=== PATIENT | male | born 1975 | race Caucasian/White ===

== ENCOUNTER 2024-05-04 08:37 | Outpatient (OUT) | payer BC, SELFPAY ==
[2024-05-04 09:34] LABS: Basophils Absolute Auto 0.1 10^3/uL (0.0-0.1); Basophils Percent Auto 0.6 % (0.2-2.0); Eosinophils Absolute Auto 0.2 10^3/uL (0.0-0.7); Eosinophils Percent Auto 1.8 % (0.9-7.0); Hematocrit 45.5 % (42.0-54.0); Hemoglobin 15.5 g/dL (14.0-18.0); Immature Granulocytes Abs Auto 0.05 10^3/uL (0.00-0.03); Immature Granulocytes Pct Auto 0.6 % (0.0-0.5); Lymphocytes Absolute Auto 2.4 10^3/uL (1.2-3.8); Lymphocytes Percent Auto 26.8 % (20.5-60.0); Mean Corpuscular HGB Conc 34.1 g/dL (29.9-35.2); Mean Corpuscular Hemoglobin 30.1 pg (25.9-34.0); Mean Corpuscular Volume 88.3 fL (80.0-94.0); Mean Platelet Volume 10.1 fL (9.5-13.5); Monocytes Absolute Auto 0.9 10^3/uL (0.3-0.8); Monocytes Percent Auto 10.4 % (1.7-12.0); Neutrophils Absolute Auto 5.4 10^3/uL (1.4-6.5); Neutrophils Percent Auto 59.8 % (43.0-75.0); Platelet Count 212 10^3/uL (150-450); Red Blood Count 5.15 10^6/uL (4.70-6.10); Red Cell Distribution Width 12.4 % (11.0-15.0)
[2024-05-04 09:41] LABS: Estimated Average Glucose 105 mg/dL; Glycohemoglobin A1C 5.3 % (4.5-6.2)
[2024-05-04 09:53] LABS: Alanine Aminotransferase 41 U/L (16-63); Albumin Globulin Ratio 1.3; Albumin Level 3.9 g/dL (3.4-5.0); Alkaline Phosphatase 62 U/L (46-116); Anion Gap 14.5; Aspartate Amino Transferase 15 U/L (15-37); BUN Creatinine Ratio 14.6; Bilirubin Total 0.4 mg/dL (0.2-1.0); Carbon Dioxide 27.9 mmol/L (21.0-32.0); Chloride 103 mmol/L (98-107); Chol HDL Ratio 6.3; Cholesterol 238 mg/dL (<=200); Estimated GFR (African America >60 (>=60); Estimated GFR (Non-African Ame >60 (>=60); Free T3 2.61 pg/mL (2.18-3.98); Globulin 3.1 g/dL; Glucose 105 mg/dL (74-106); HDL Cholesterol 38 mg/dL (40-60); Potassium 4.4 mmol/L (3.5-5.1); Sodium 141 mmol/L (136-145); Thyroid Stimulating Hormone 2.481 uIU/mL (0.358-3.740); Triglycerides 231 mg/dL (<=150); VLDL CHOLESTEROL 46.2 mg/dL
[2024-05-04 10:02] LABS: Prostate Specific Antigen Scrn 0.65 ng/mL (<=4.00)
[2024-05-06 12:08] LABS: Insulin 37.6 uIU/mL (2.6-24.9)
== END 2024-05-04 08:38 | disposition home or self-care (01) ==
LOC: LAB 08:45
PROVIDERS: PCP Family Medicine; Visit Provider Family Medicine
DX: Z00.00 Encounter for general adult medical examination without abnormal findings (principal)
CPT/HCPCS: 36415; 80053; 80061; 83036; 83525; 84436; 84443; 84481; 85025; G0103

== ENCOUNTER 2024-06-21 14:46 | Outpatient (OUT) | payer BC, SELFPAY ==
--- OUTSIDE RECORDS SUMMARY | 2024-06-21 14:49 | XMS_ITS | CCD ---
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 Name Role Phone Lola Umana Primary Care Provider Dylan Nieto Attending Provider Marlo Chun Unavailable Jeana Lauren Unavailable Dylan Nieto Unavailable ERWIN, DR LOLA Levine Admitting Unavailable UMANA, DR LOLA Levine Attending Unavailable UMANA, DR LOLA Levine Consulting Unavailable UMANA, DR LOLA Levine Primary Care Unavailable WILBEREBER, DR ISABELA Alford Consulting Unavailable MISC, DR GUPTA Attending Unavailable MISC, DR GUPTA Admitting Unavailable CASPER, DR PHU Patrick Consulting Unavailable UMANA, DR LOLA Levine Primary Care Unavailable MISC, DR GUPTA Consulting Unavailable MISC, DR GUPTA Attending Unavailable MISC, DR GUPTA Consulting Unavailable UMANA, DR LOLA Levine Primary Care Unavailable MISC, DR GUPTA Admitting Unavailable KLYMALLISON Consulting Unavailable UMANA, DR LOLA Levine Admitting Unavailable UMANA, DR LOLA Levine Attending Unavailable UMANA, DR LOLA Levine Primary Care Unavailable UMANA, DR LOLA Levine Admitting Unavailable UMANA, DR LOLA Levine Attending Unavailable UMANA, DR LOLA Levine Primary Care Unavailable UMANA, DR LOLA Levine Primary Care Unavailable UMANA, DR LOLA Levine Admitting Unavailable UMANA, DR LOLA Levine Attending Unavailable UMANA, DR LOLA Levine Consulting Unavailable Sofya Espinoza Unavailable Ralph Hernandez Unavailable MD Lola Umana Primary Care Provider MD Ralph Hernadnez Attending Provider Lola Umana Primary Care Unavailable Ralph Hernandez Admitting Unavailable Ralph Hernandez Attending Unavailable Ralph Hernandez Attending Unavailable Ralph Hernandez Admitting Unavailable Lola Umana Primary Care Unavailable Ralph Hernandez Attending Unavailable Ralph Hernandez Admitting Unavailable Lola Umana Primary Care Unavailable Sang Sullivan Unavailable Alexis ALCANTARA Attending Unavailable Judd Tanner Referring Unavailable Unavailable Unavailable Unavailable Allergies Allergy Classification Reported Allergen(s) Allergy Type Date of Onset Reaction(s) Facility (20 sources) Michael Carroll Propensity to adverse reactions rash [place] Other (1 source) No Known Medication Allergies; Translations: [No Known Medication Allergies] Propensity to adverse reactions (disorder) [facility] Repository Medications Current Medications Medication Drug Class(es) Dates Sig (Normalized) Sig (Original) acetaminophen 500 mg oral tablet (3 sources) Start: 06-23-2022 take 2 tablets by mouth every six hours Acetaminophen (Tylenol Extra Strength) 500 mg Tablet Active 1000 MG PO Q6H June 23, 2022 12:00am celecoxib 200 mg oral capsule (15 sources) Nonsteroidal Anti-inflammatory Drug Start: 05-02-2022 take 200 mg by mouth once daily Celecoxib Active 200 MG PO Daily June 23, 2022 12:00am Centrum Men (20 sources) Centrum Men Acti ve cephalexin 500 mg oral capsule (1 source) Cephalosporin Antibacterial Start: 07-06-2022 take 500 mg by mouth three times daily Cephalexin Active 500 MG PO Three times daily 15 July 06, 2022 12:00am cyclobenzaprine hydrochloride 10 mg oral tablet (6 sources) Muscle Relaxant Start: 07-06-2022 take 10 mg by mouth three times daily Cyclobenzaprine Active 10 MG PO Three times daily 40 July 06, 2022 12:00am Start: 09-16-2020 End: 06-23-2022 take 10 mg by mouth three times daily Cyclobenzaprine Discontinued 10 MG PO Three times daily September 16, 2020 1:00am June 23, 2022 4:10pm diazePAM 10 mg oral tablet (4 sources) Benzodiazepine Start: 10-06-2021 take 1 tablet by mouth once as needed Valium 10 MG 1 tablet as needed Orally once prior to mri for 1 days Sep, Active Start: 09-29-2020 End: 06-23-2022 take 5 mg by mouth four times daily Diazepam Discontinued 5 MG PO Four times daily 10 07September 29, 2020 1:00am June 23, 2022 4:10pm gabapentin 300 mg oral capsule (15 sources) Anti-epileptic Agent Start: 05-02-2022 take 300 mg by mouth three times daily Gabapentin Active 300 MG PO Three times daily June 23, 2022 12:00am glucosamine 500 mg oral tablet (1 source) take 1 capsule by mouth three times daily Glucosamine 500 MG 1 capsule with a meal Orally Three times a day Active Multivitamin preparation (3 sources) Start: 06-23-2022 take 1 tablet by mouth once daily Multivitamin Active 1 TAB PO Daily June 23, 2022 12:00am oxyCODONE hydrochloride 5 mg oral tablet (1 source) Opioid Agonist Start: 07-06-2022 take 5-10 mg by mouth every six hours Oxycodone Active 5 - 10 MG PO Q6H 40 July 06, 2022 Start: 07-06-2022 take 5-10 mg by mout h every six hours Oxycodone Active 5 - 10 MG PO Q6H 40 July 06, 2022 predniSONE 10 mg oral tablet (7 sources) Start: 06-01-2023 prednisone 10 mg 4 tablets x2 days, then 3 x2 days, 2 x2 days, 1 x2 days Orally as directed for 8 May, Active Start: 12-30-2022 predniSONE 10 MG 1 tablet T.I.D x 3days, 1 tablet B.I.D x 3 days, 1 tablet qd X3 days Orally as directed for 9 days Dec, Not-Taking Start: 07-06-2022 Prednisone Act prashant 1 dose pk PO per package directions July 06, 2022 12:00am take 4 tabs for 3 days then take 3 tabs for 3 days then take 2 tabs for 3 days then take 1 tab for 3 days Triamcinolone (20 sources) Corticosteroid Start: 04-08-2019 HAKAN - 10 m g Mar, 40 mg Completed/Discontinued Medications Medication Drug Class(es) Dates Sig (Normalized) Sig (Original) acetaminophen 325 mg / HYDROcodone bitartrate 5 mg oral tablet (3 sources) Opioid Agonist Start: 09-29-2020 End: 06-23-2022 take 1 tablet by mouth every six hours Hydrocodone-Acetamin ophen Discontinued 1 - 2 TAB PO Q6H 70 14 September 29, 2020 June 23, 2022 4:10pm ascorbic acid 100 mg oral tablet (5 sources) Vitamin C Start: 09-16-2020 End: 06-23-2022 take 1 tablet by mouth once daily Ascorbic Acid (Vitamin C) (Vitamin C) 100 mg Tablet Discontinued 100 MG PO Daily September 16, 2020 1:00am June 23, 2022 4:09pm cholecalciferol 0.025 mg oral capsule (5 sources) Vitamin D Start: 09-16-2020 End: 06-23-2022 take 1 capsule by mouth once daily Cholecalciferol (Vitamin D3) (Vitamin D3) 25 mcg (1,000 unit) Capsule Discontinued 25 MCG PO Daily September 16, 2020 1:00am June 23, 2022 4:09pm Problems Active Problems Problem Classification Problem Date Documented Date Episodic/Chronic Allergic reactions (1 source) Allergic contact dermatitis due to plants, except food Episodic Other nervous system disorders (20 sources) Chronic pain; Translations: [Other chronic pain] Chronic Other nervous system disorders (7 sources) Other chronic pain Onset: 12-23-2021 Resolved: 03-03-2022 Chronic Other upper respiratory disease (20 sources) Seasonal allergic rhinitis; Translations: [Other seasonal allergic rhinitis] Chronic Residual codes; unclassified (4 sources) Obstructive sleep apnea (adult) (pediatric); Translations: [OBSTRUCTIVE SLEEP APNEA] Onset: 04-25-2022 Chronic Spondylosis; intervertebral disc disorders; other back problems (20 sources) Solitary sacroiliitis; Translations: [Sacroiliitis, not elsewhere classified] Onset: 10-04-2021 Resolved: 03-03-2022 Chronic Spondylosis; intervertebral disc disorders; other back problems (20 sources) Cervical disc disorder with radiculopathy; Translations: [Cervical disc disorder with radiculopathy, unspecified cervical region] Onset: 08-23-2021 Resolved: 03-03-2022 Episodic Unclassified (1 source) Encounter for preprocedural laboratory examination; Translations: [Encounter for preprocedural laboratory examination] Onset: 07-04-2022 Past or Other Problems Problem Classification Problem Date Documented Da te Episodic/Chronic Immunizations and screening for infectious disease (1 source) Contact with and (suspected) exposure to other viral communicable diseases Onset: 07-27-2021 Resolved: 07-27-2021 Episodic Viral infection (1 source) COVID-19 Onset: 07-27-2021 Resolved: 07-27-2021 Results Test Name Value Interpretation Reference Range Facility Ambulatory Visit Summaryon 0 05-29-2024 Ambulatory Visit Summary Ambulatory Visit Summary TYLOR WALL :1975 Visit Date:05/29/2024 Ambulatory Visit Instructions Your Diagnosis Screening for malignant neoplasm of colon Your Care Team Attending Physician - MARICRUZ ANDERSEN, Alexis Alford Primary Care Physician - Flores ANDERSEN, Judd Referring Physician - Flores ANDERSEN, Judd Procedures Performed Cervical discectomy, Lumbar discectomy. Discharge Vitals Heart Rate (Peripheral) 72 Respiratory Rate 16 Blood Pressure 118/74 Height 172.72 cm Height 68 in Weight 106 kg Weight 233.2 lb BMI 35.53 Allergies No Known Allergies No Known Medication Allergies Problems Ongoing - Any problem that you are currently receiving treatment for. BMI 35.0-35.9,adult Obesity due to excess calories Screening for malignant neoplasm of colon Sleep apnea Patient Survey You may receive a survey via text or e-mail asking about your office visit. Please share your experience with us by completing your survey. We appreciate your feedback and thank you for choosing us for your care. [facility] Dannie 07-06-2022 L - -------- Specimen: [id number] Received: 07/06/22 Status: NASREEN Brenda Num: [id number] Spec Type: Surgical Subm Dr: Ralph Hernandez MD Tissues: A Disc - Intervertebral/Lumbar /Cervical (LUMBAR DISC) Procedures: HE Stain, Gross/Micro L3 -------- Age/ Patient Sex Location Account Attending Physician -------- Tylor Wall 47/M DC [id number] Ralph Hernandez MD -------- SPEC NUM: [id number] RECD: 07/06/22 STATUS: NASREEN OLIVER NUM: [id number] ERIC: 07/06/22 [facility] DR: Ralph Hernandez MD ENTERED: 07/06/[address] [facility] [address]: ANTHONY TYPE: Surgical DEPT: S ORDERED: HE Stain, Gross/Micro L3 ORDERED: HE Stain, Gross/Micro L3 Pathological Diagnosis Lumbar disc, discectomy: - Benign degenerated cartilage tissue. Clinical Information Left L5-S1 disc herniation Gross Description Received in formalin labeled with the patient's name, number and lumbar disc is a 4.5 x 2.3 x 1.2 cm aggregate of coon-pink fibrocartilaginous tissue. Inspector Eyeglass sections are submitted in one cassette labeled A1. Microscopic Description One glass slide with H E stained material has been examined. The microscopic findings support the above pathologic diagnosis. CPT Codes 45671 -------- -------- Specimen: [id number] Received: 07/06/22 Status: NASREEN Brenda Num: [id number] Spec Type: Surgical Subm Dr: Ralph Hernandez MD Tissues: A Disc - Intervertebral/Lumbar /Cervical (LUMBAR DISC) Procedures: HE Stain, Gross/Micro L3 -------- Patient: Tylor Wall [id number] (Continued) -------- Signed (signature on file) Kylie Echeverria MD 07/07/[address] [facility] XR lumbar spine 1Von 022 XR lumbar spine 1V [address] [address] XRay Report Signed Patient: Tylor Wall MR#: [id number] : 1975 Acct:[id number] Age/Sex: 47 / M ADM Date: 07/06/22 Loc: DC Room: Type: [facility] Attending Dr: Ralph Hernandez MD Copies to: Ralph Hernandez MD Ordering Provider: Ralph Hernandez MD Date of Service: 07/06/22 XR/XR lumbar spine 1V: . Intraoperative study. Reason for exam: Lumbar discectomy. FINDINGS: One image was obtained intraoperatively. 30 seconds of fluoroscopic time is utilized. XR/XR lumbar spine 1V IMPRESSION: Intraoperative study. Impression dictated by: Rodrigo Avalos Jr., D.OArtie07/06/2022 12:45 PM Dictation Location: [place] [address] Transcribed By: [facility] 07/06/22 1245 Dictated By: Rodrigo Avalos Jr, DO 07/06/22 1244 Signed By: 07/06/22 1245 Normal [facility] COVID-19 [facility] SARS-CoV-2 (COVID-19) RNA AMPARO+probe Ql (Unsp spec) Negative Normal Negative [facility] Comment on above: Order Comment: Healt hcare Worker?: N Result Comment: Testing for SARS-CoV-2 by RT-PCR This test was developed and its performance characteristics determined by [employer]) and validated at the [facility]. This test has not been FDA cleared or approved. This test has been authorized by FDA under an Emergency Use Authorization (EUA). This test has been validated in accordance with the FDA's Guidance Document (Policy for Diagnostics Testing in Laboratories Certified to Perform High Complexity Testing under CLIA prior to Emergency Use Authorization for Coronavirus Disease-2019 during the Public Health Emergency) issued on December 12, 2019. This test is only authorized for the duration of time the declaration that circumstances exist justifying the authorization of the emergency use of in vitro diagnostic tests for detection of SARS-CoV-2 virus and/or diagnosis of COVID-19 infection under section 564(b)(1) of the Act, 21 U.S.C. 360bbb-3(b)(1), unless the authorization is terminated or revoked sooner. PERFORMED BY: [facility] [address] [place] [address] PATHOLOGIST SAFETY REPRESENTATIVE HOLLY RAINES M.D. Performed By: #### C OVID 19 [facility] #### [facility] [address] COVID-19 Positive/NegativeOr dered By: Ralph Hernandez on 07-04-2022 SARS-CoV-2 (COVID-19) N gene AMPARO+probe Ql (Resp) Negative Negative [facility] Comment on above: Testing for SARS-CoV -2 by RT-PCRThis test was developed and its performance characteristics determined by [employer] ([employer]) and validated at the [facility]. This test has not been FDA cleared or approved. This test has been authorized by FDA under an Emergency Use Authorization (EUA). This test has been validated in accordance with the FDA's Guidance Document (Policy for Diagnostics Testing in Laboratories Certified to Perform High Complexity Testing under CLIA prior to Emergency Use Authorization for Coronavirus Disease-2019 during the Public Health Emergency) issued on December 12, 2019. This test is only authorized for the duration of time the declaration that circumstances exist justifying the authorization of the emergency use of in vitro diagnostic tests for detection of SARS-CoV-2 virus and/or diagnosis of COVID-19 infection under section 564(b)(1) of the Act, 21 U.S.C. 360bbb-3(b)(1), unless the authorization is terminated or revoked sooner. Automated basophil %Ordered By: aRlph Hernandez on 06-23-2022 Basophils/100 WBC (Bld) 0.4 % Normal . [facility] Comment on above: Performed By: #### C BC, [facility] #### [facility] [address] [place], [place] [id number] [facility] Automated basophil countOrde red By: Ralph Hernandez on 06-23-2022 Basophils (Bld) [#/Vol] 0.0 10*3/uL Normal 0.0-0.2 [facility] Comment on above: Result Comment: PERF ORMED BY: [facility] [address] [place] [address] PATHOLOGIST SAFETY REPRESENTATIVE HOLLY RAINES M.D. Performed By: #### C BC, BMP #### [address] Automated blood monocyte cou ntOrdered By: Ralph Hernandez on 06-23-2022 Monocytes (Bld) [#/Vol] 0.6 10*3/uL Normal 0.0-0.8 [facility] Comment on above: Performed By: #### C BC, BMP #### [address] Automated eosinophil %Ordere d By: Ralph Hernandez on 06-23-2022 Eosinophils/100 WBC (Bld) 0.6 % Normal . [facility] Comment on above: Performed By: #### C BC, BMP #### [address] Automated eosinophil countOr dered By: Ralph Hernandez on 06-23-2022 Eosinophils (Bld) [#/Vol] 0.0 10*3/uL Normal 0.0-0.45 [facility] Comment on above: Performed By: #### C BC, BMP #### [address] Automated monocyte %Ordered By: Ralph Hernandez on 06-23-2022 Monocytes/100 WBC (Bld) 8.4 % Normal . [facility] Comment on above: Performed By: #### C BC, BMP #### [address] Automated neutrophil %Ordere d By: Ralph Hernandez on 06-23-2022 Neutrophils/100 WBC (Bld) 63.6 % Normal . [facility] Comment on above: Performed By: #### C BC, BMP #### [address] Basic Metabolic Panelon 06-11 Estimated GFR ( Twyla > 60 Normal [facility] Comment on above: Result Comment: GFR estimated reference range: According to KDOQI guidelines, <60 ml/min/1.73m2 is sufficient to diagnose a patient with chronic kidney disease. Performed By: #### C BC, BMP #### [facility] [address] [place] [address] Estimated GFR (Non- Am 56 Normal [facility] Comment on above: Performed By: #### C BC, BMP #### [address] Complete Blood Count Auto Di ffon 06-23-2022 Mean Corpuscular HGB Conc 33.2 g/dL Normal 32.5-35.6 [facility] Comment on above: Performed By: #### C BC, BMP #### [address] Complete Blood Count Auto Di ffOrdered By: Ralph Hernandez on 06-23-2022 Nucleated RBC/100 WBC (Bld) [Ratio] 0.0 % Normal 0-0.5 [facility] Comment on above: Performed By: #### C EMMY, BMP #### [address] ECG 12 lead ECGon 06-23-2022 ECG 12 lead ECG [facility] [place] [address] Electrocardiograph Report Signed Patient: Tylor Wall MR#: [id number] : 1975 Acct:[id number] Age/Sex: 47 / M ADM Date: 06/23/22 Loc: Room: Type: [facility] Attending Dr: Ralph Hernandez MD Ordering Provider: Ralph Hernandez MD Date of Service: 06/23/22 ECG/ECG 12 lead ECG: surgery 07-06-2022 Copies to: Test Reason : Blood Pressure : / mmHG Vent. Rate : 073 BPM Atrial Rate : 073 BPM P-R Int : 146 ms QRS Dur : 082 ms QT Int : 382 ms P-R-T Axes : 057 034 026 degrees QTc Int : 420 ms Normal sinus rhythm Normal ECG When compared with ECG of 16-SEP-2020 09:25, QT has shortened Confirmed by ALLISON BROTHERS DO ([id number]) on 06/23/2022 9:05:01 PM Referred By: ERWIN HERNANDEZ Electronically Signed By:ALLISON BROTHERS DO Transcribed By: MUS Signed By Allison Brothers DO 06/235 Normal [facility] Erythrocyte distribution wid th [Ratio] by Automated countOrdered By: Ralph Hernandez on 06-23-2022 Erythrocyte distribution width (RBC) [Ratio] 12.6 % Normal 12.0-14.8 [facility] Comment on above: Performed By: #### C BC, BMP #### [address] Erythrocytes [#/volume] in B lood by Automated countOrdered By: Ralph Hernandez on 06-23-2022 RBC (Bld) [#/Vol] 5.36 10*6/uL Normal 3.90-5.60 [facility] Comment on above: Performed By: #### C EMMY, BMP #### [address] Estimated glomerular filtrat ion rate (GFR) non- AmericanOrdered By: Ralph Hernandez on 06-23-2022 GFR/1.73 sq M.predicted among non-blacks MDRD (S/P/Bld) [Vol rate/Area] 56 mL/Min [facility] Hematocrit [Volume Fraction] of Blood by Automated countOrdered By: Ralph Hernandez on 06-23-2022 Hematocrit (Bld) [Volume fraction] 47.7 % Normal 38.8-50.0 [facility] Comment on above: Performed By: #### C EMMY, BMP #### [address] Hemoglobin [Mass/volume] in BloodOrdered By: Ralph Hernandez on 06-23-2022 Hemoglobin (Bld) [Mass/Vol] 15.9 g/dL Normal 13.0-17.0 [facility] Comment on above: Performed By: #### C BC, BMP #### [address] Leukocytes [#/volume] in Blo od by Automated countOrdered By: Ralph Hernandez on 06-23-2022 WBC (Bld) [#/Vol] 7.3 10*3/uL Normal 4.5-11.0 [facility] Comment on above: Performed By: #### C BC, BMP #### [address] Lymphocytes [#/volume] in Bl ood by Automated countOrdered By: Ralph Hernandez on 06-23-2022 Lymphocytes (Bld) [#/Vol] 2.0 10*3/uL Normal 1.00-4.8 [facility] Comment on above: Performed By: #### C BC, BMP #### [address] Lymphocytes/100 leukocytes i n Blood by Automated countOrdered By: Ralph Hernandez on 06-23-2022 Lymphocytes/100 WBC (Bld) 27.0 % Normal . [facility] Comment on above: Performed By: #### C BC, BMP #### [address] MCH [Entitic mass] by Automa ryan countOrdered By: Ralph Hernandez on 06-23-2022 MCH (RBC) [Entitic mass] 29.6 pg Normal 27.5-35.2 [facility] Comment on above: Performed By: #### C BC, BMP #### [address] MCHC Auto (RBC) [Mass/Vol]Or dered By: Ralph Hernandez on 06-23-2022 MCHC (RBC) [Mass/Vol] 33.2 g/dL 32.5-35.6 [facility] [place] MCV [Entitic volume] by Auto mated countOrdered By: Ralph Hernandez on 06-23-2022 MCV (RBC) [Entitic vol] 89.1 fL Normal 83.5-101 F [facility] Comment on above: Performed By: #### C BC, BMP #### [address] Neutrophils [#/volume] in Bl ood by Automated countOrdered By: Ralph Hernandez on 06-23-2022 Neutrophils (Bld) [#/Vol] 4.6 10*3/uL Normal 1.8-7.7 [facility] Comment on above: Performed By: #### C BC, BMP #### [facility] [address] [place] [address] No Panel InformationOrdered By: Ralph Hernandez on 06-23-2022 Estimated GFR () > 60 mL/Min [facility] Comment on above: GFR estimated refere nce range: According to KDOQI guidelines, <60 ml/min/1.73m2 is sufficient to diagnose a patient with chronic kidney disease. Pharmacy Creatinine Clearance (Chem N/A [facility] Platelet mean volume [Entiti c volume] in Blood by Automated countOrdered By: Ralph Hernandez on 06-23-2022 Platelet mean volume (Bld) [Entitic vol] 8.8 fL Normal 6.6-10.1 [facility] Comment on above: Performed By: #### C BC, BMP #### [facility] [address] [place] [address] Platelets [#/volume] in Bloo d by Automated countOrdered By: Ralph Hernandez on 06-23-2022 Platelets (Bld) [#/Vol] 229 10*3/uL Normal 150-450 [facility] Comment on above: Performed By: #### C EMMY, BMP #### [address] Serum or plasma anion gap de terminationOrdered By: Ralph Hernandez on 06-23-2022 Anion gap [Moles/Vol] 16.0 mmol/L High 6.0-15.0 [facility] Comment on above: Performed By: #### C BC, BMP #### [address] Serum or plasma calcium alissa urement (mass/volume)Ordered By: Ralph Hernandez on 06-23-2022 Calcium [Mass/Vol] 10.1 mg/dL Normal 8.2-10.2 [facility] Comment on above: Result Comment: PERF ORMED BY: [place] [address] PATHOLOGIST SAFETY REPRESENTATIVE HOLLY RAINES M.D. Performed By: #### C BC, BMP #### [address] Serum or plasma chloride mojgan surement (moles/volume)Ordered By: Ralph Hernandez on 06-23-2022 Chloride [Moles/Vol] 102 mmol/L Normal 95-114 [facility] Comment on above: Performed By: #### C BC, BMP #### [address] Serum or plasma creatinine m easurement with calculation of estimated glomerular filtrOrdered By: Ralph Hernandez on 06-23-2022 Creatinine [Mass/Vol] 1.37 mg/dL High 0.64-1.27 [facility] Comment on above: Performed By: #### C BC, BMP #### [address] Serum or plasma glucose alissa urement (mass/volume)Ordered By: Ralph Hernandez on 06-23-2022 Glucose [Mass/Vol] 107 mg/dL High 70-100 [facility] Comment on above: ADA recommended refe rence rangeRandom Glucose Reference Range is dependent on time and content of last meal. Glucose of more than 200 mg/dL in a nonstressed, ambulatory subject supports the diagnosis of Diabetes Mellitus. Result Comment: [place] om Glucose Reference Range is dependent on time and content of last meal. Glucose of more than 200 mg/dL in a nonstressed, ambulatory subject supports the diagnosis of Diabetes Mellitus. ADA recommended reference range Performed By: #### C BC, BMP #### [address] Serum or plasma potassium me asurement (moles/volume)Ordered By: Ralph Hernandez on 06-23-2022 Potassium [Moles/Vol] 4.3 mmol/L Normal 3.5-5.1 [facility] Comment on above: Performed By: #### C BC, BMP #### [address] Serum or plasma sodium measu rement (moles/volume)Ordered By: Ralph Hernandez on 06-23-2022 Sodium [Moles/Vol] 139 mmol/L Normal 136-146 [facility] Comment on above: Performed By: #### C BC, BMP #### [facility] [address] Serum or plasma total carbon dioxide measurement (moles/volume)Ordered By: Ralph Hernandez on 06-23-2022 CO2 [Moles/Vol] 25.3 mmol/L Normal 22.0-30.0 [facility] Comment on above: Performed By: #### C EMMY, BMP #### [facility] [address] Serum or plasma urea nitroge n measurement (mass/volume)Ordered By: Ralph Hernandez on 06-23-2022 Urea nitrogen [Mass/Vol] 13 mg/dL Normal 9-23 [facility] Comment on above: Performed By: #### C EMMY, BMP #### [facility] [address] MRI LSPINE WO CONon 10-08-19 MRI LSPINE WO CON MRI LUMBAR SPINE WITHOUT CONTRAST: 10/08/2021 9:27 AM EST History:Lumbar radiculopathy. Pain back and right thigh Comparison: None available . Sequences per routine unenhanced protocol. STUDY QUALITY: Good NUMBERING SCHEME: The lowest lumbar type vertebra is labeled L5. Rudimentary disc at S1-S2. OSSEOUS: No marrow edema pattern or compression deformity. The marrow signal is diffusely low on T1. SPINAL CANAL SIZE: Developmentally is average in size T11-T12: Exam in sagittal plane only is negative T12-L1: No HNP or central stenosis L1-2: No HNP or central stenosis L2-3: No HNP or central stenosis L3-4: No HNP or central stenosis L4-5: Mild loss of disc space height. No HNP or central stenosis. Right L4 foramen is moderately narrowed by lateral disc protrusion as well as mild facet overgrowth. L5-S1: Mild retrolisthesis. Moderate loss of disc space height posteriorly. Disc is mildly bulging. Superimposed moderate disc herniation eccentric from left paracentral to right posterolateral. [place] is right posterolateral. Asymmetric deformity upon the sac and moderate compromise right S1 root sleeve at its emergence from the sac. Very mild central stenosis. Left L5 foramen modestly narrowed by facet orientation and overgrowth. Right L5 foramen is mildly narrowed by lateral extension of disc material greater than bony overgrowth. S1 foramina are widely patent SPINAL CORD: No myelomalacia. No syrinx. CONAL TIP: Low-lying at L2. No lipomatous thickening of the filum terminale is evident EXTRASPINAL SOFT TISSUES: No acute finding OTHER: None IMPRESSION: 1. Moderate right sided HNP at L5-S1. Clinical correlation regarding a right S1 radiculopathy is needed. 2. Moderate asymmetric compromise right L4 foramen secondary to disc protrusion as well as focal facet overgrowth. 3. Marrow signal as described. Is there anemia of chronic disease? Does the patient smoke? Electronically authenticated by: ALLISON ALSTON Date: 2021-10-08 10:[address] [facility] XR CSPINE OBL FLEX_EXTon XR CSPINE OBL FLEX_EXT EXAMINATION: XR CSPINE OBL FLEX_EXT HISTORY: Cervical disc disorder with radiculopathy COMPARISON: 12/25/2020 FINDINGS: BONES: Neutral projection demonstrates normal alignment with no acute fracture or spondylolisthesis. Mild anterior and posterior degenerative spondylosis C5-C6. DISC SPACES: Stable intervertebral spacer C6-C7 PARASPINOUS: Posterior calcification, stable. No paraspinous abnormality is seen. OTHER: No transient spondylolisthesis with flexion or extension. Normal movement. IMPRESSION: Mild degenerative changes C5-C6, grossly stable from the prior exam No dynamic instability Electronically authenticated by: PHU STRONG Date: 2021-09-28 14:52 [address] [facility] XR LSPINE MIN 4 VIEWSon 08-11 XR LSPINE MIN 4 VIEWS EXAMINATION: XR LSPINE MIN 4 VIEWS HISTORY: Right side sciatica for 4 months, no known injury COMPARISON: No relevant comparison available. FINDINGS: BONES: No significant spondylosis, scoliosis, fracture, or visible bony lesion. DISC SPACES: Slight narrowing L5-S1. PARASPINOUS: Negative. No paraspinous abnormality is seen. OTHER: Negative. IMPRESSION: 1. No appreciable acute abnormality. 2. Suspect L5-S1 mild degenerative disc disease. Electronically authenticated by: ISABELA GONZALEZ Date: 2021-08-23 11:[address] [facility] [employer] Quick Testingon 2020 Result Positive [facility] Other COVID-19 Positive/Negativeon 09-28-2020 COVID-19 Positive/Negative Negative Negative [facility] Comment on above: Testing for SARS-CoV -2 by RT-PCRThis test was developed and its performance characteristics determined by [employer] ([employer]) and validated at the [facility]. This test has not been FDA cleared or approved. This test has been authorized by FDA under an Emergency Use Authorization (EUA). This test has been validated in accordance with the FDA's Guidance Document (Policy for Diagnostics Testing in Laboratories Certified to Perform High Complexity Testing under CLIA prior to Emergency Use Authorization for Coronavirus Disease-2019 during the Public Health Emergency) issued on December 12, 2019. This test is only authorized for the duration of time the declaration that circumstances exist justifying the authorization of the emergency use of in vitro diagnostic tests for detection of SARS-CoV-2 virus and/or diagnosis of COVID-19 infection under section 564(b)(1) of the Act, 21 U.S.C. 360bbb-3(b)(1), unless the authorization is terminated or revoked sooner. Otheron 09-28-2020 Coronavirus 2019 PCR Interp N/A [facility] Automated basophil %on 09-16 Basophils/100 WBC (Bld) 0.5 % [facility] Automated basophil counton 0 09-16-2020 Basophils (Bld) [#/Vol] 0.0 10*3/uL 0.0-0.2 [facility] Automated blood lymphocyte c ount (number/volume)on 09-16-2020 Lymphocytes (Bld) [#/Vol] 2.3 10*3/uL 1.00-4.8 [facility] Automated blood lymphocyte c ount as percentage of total leukocyteson 09-16-2020 Lymphocytes/100 WBC (Bld) 26.8 % [facility] Automated blood monocyte cou nton 09-16-2020 Monocytes (Bld) [#/Vol] 0.8 10*3/uL 0.0-0.8 [facility] Automated blood platelet cou nt (count/volume)on 09-16-2020 Platelets (Bld) [#/Vol] 223 10*3/uL 150-450 [facility] Automated blood platelet mojgan n volume measurementon 09-16-2020 Platelet mean volume (Bld) [Entitic vol] 8.4 fL 6.6-10.1 [facility] Automated eosinophil %on Eosinophils/100 WBC (Bld) 1.2 % [facility] Automated eosinophil counton 09-16-2020 Eosinophils (Bld) [#/Vol] 0.1 10*3/uL 0.0-0.45 [facility] Automated erythrocyte distri bution width ratioon 09-16-2020 Erythrocyte distribution width (RBC) [Ratio] 13.6 % 12.0-14.8 [facility] Automated erythrocyte mean c orpuscular hemoglobin (mass per erythrocyte)on 09-16-2020 MCH (RBC) [Entitic mass] 29.9 pg 27.5-35.2 [facility] Automated erythrocyte mean c orpuscular hemoglobin concentration measurement (mass/volon 09-16-2020 MCHC (RBC) [Mass/Vol] 33.2 g/dL 32.5-35.6 [facility] Automated erythrocyte mean c orpuscular volumeon 09-16-2020 MCV (RBC) [Entitic vol] 90.1 fL 83.5-101 [facility] Automated monocyte %on 09-16 Monocytes/100 WBC (Bld) 9.6 % [facility] Automated neutrophil %on Neutrophils/100 WBC (Bld) 61.9 % [facility] Blood erythrocytes automated count (number/volume)on 09-16-2020 RBC (Bld) [#/Vol] 5.30 10*6/uL 3.90-5.60 [facility] Blood hemoglobin measurement (mass/volume)on 09-16-2020 Hemoglobin (Bld) [Mass/Vol] 15.9 g/dL 13.0-17.0 [facility] Blood leukocytes automated c ount (number/volume)on 09-16-2020 WBC (Bld) [#/Vol] 8.6 10*3/uL 4.5-11.0 [facility] Blood neutrophil count by au tomated method (number/volume)on 09-16-2020 Neutrophils (Bld) [#/Vol] 5.3 10*3/uL 1.8-7.7 [facility] Estimated glomerular filtrat ion rate (GFR) non- Americanon 09-16-2020 GFR/1.73 sq M predicted among non-blacks MDRD (S/P/Bld) [Vol rate/Area] mL/min/{1.73_m2} [facility] Hematocrit [Volume Fraction] of Blood by Automated counton 09-16-2020 Hematocrit (Bld) [Volume fraction] 47.8 % 38.8-50.0 [facility] Otheron 09-16-2020 GFR/1.73 sq M.predicted MDRD (S/P/Bld) [Vol rate/Area] mL/min/{1.73_m2} [facility] Comment on above: GFR estimated refere nce range: According to KDOQI guidelines, <60 ml/min/1.73m2 is sufficient to diagnose a patient with chronic kidney disease. Nucleated RBC/100 WBC (Bld) [Ratio] 0.2 % 0-0.5 [facility] Creatinine Clearance (Chem N/A [facility] Serum or plasma calcium alissa urement (mass/volume)on 09-16-2020 Calcium [Mass/Vol] 9.4 mg/dL 8.2-10.2 [facility] Serum or plasma chloride mojgan surement (moles/volume)on 09-16-2020 Chloride [Moles/Vol] 106 mmol/L 95-114 [facility] Serum or plasma creatinine m easurement with calculation of estimated glomerular filtron 09-16-2020 Creatinine [Mass/Vol] 1.03 mg/dL 0.64-1.27 [facility] Serum or plasma glucose alissa urement (mass/volume)on 09-16-2020 Glucose [Mass/Vol] 120 mg/dL 70-100 [facility] Comment on above: ADA recommended refe rence rangeRandom Glucose Reference Range is dependent on time and content of last meal. Glucose of more than 200 mg/dL in a nonstressed, ambulatory subject supports the diagnosis of Diabetes Mellitus. Serum or plasma potassium me asurement (moles/volume)on 09-16-2020 Potassium [Moles/Vol] 4.1 mmol/L 3.5-5.1 [facility] Serum or plasma sodium measu rement (moles/volume)on 09-16-2020 Sodium [Moles/Vol] 139 mmol/L 136-146 [facility] Serum or plasma total carbon dioxide measurement (moles/volume)on 09-16-2020 CO2 [Moles/Vol] 22.6 mmol/L 22.0-30.0 [facility] Serum or plasma urea nitroge n measurement (mass/volume)on 09-16-2020 Urea nitrogen [Mass/Vol] 11 mg/dL 9-23 [facility] Vital Signs Date Time Vital Sign Value Performing Clinician Facility 06-01-2023 18:15-0400 Body height 172.72 cm Sang Sullivan Other [facility] Other 06-01-2023 18:15-0400 Body mass index (BMI) [Ratio] 33.45 kg/m2 Sang Sullivan Other [facility] Other 06-01-2023 18:15-0400 Body temperature 97.8 [degF] Sang Sullivan Other [facility] Other 06-01-2023 18:15-0400 Body weight 99.79 kg Sang Sullivan Other [facility] Other 06-01-2023 18:15-0400 Respiratory rate 20 /min Sang Sullivan Other [facility] Other 06-01-2023 18:15-0400 SaO2% (BldA) [Mass fraction] 9 % Sang Sullivan Other [facility] Other 03-20-2023 13:45-0400 Body height 172.72 cm Marlo Chun Other [facility] Other 03-20-2023 13:45-0400 Body mass index (BMI) [Ratio] 34.97 kg/m2 Marlo Chun Other [facility] Other 03-20-2023 13:45-0400 Body weight 104.33 kg Marlo Chun Other [facility] Other 03-20-2023 13:45-0400 Diastolic blood pressure 86 mm[Hg] Marlo Chun Other [facility] Other 03-20-2023 13:45-0400 SaO2% (BldA) [Mass fraction] 97 % Marlo Chun Other [facility] Other 03-20-2023 13:45-0400 Systolic blood pressure 124 mm[Hg] Marlo Chun Other [facility] Other 02-27-2023 16:00-0400 Body height 172.72 cm Marlo Chun Other [facility] Other 02-27-2023 16:00-0400 Body mass index (BMI) [Ratio] 36 kg/m2 Marlo Chun Other [facility] Other 02-27-2023 16:00-0400 Body weight 107.41 kg Marlo Chun Other [facility] Other 02-27-2023 16:00-0400 Diastolic blood pressure 70 mm[Hg] Marlo Chun Other [facility] Other 02-27-2023 16:00-0400 SaO2% (BldA) [Mass fraction] 96 % Marlo Chun Other [facility] Other 02-27-2023 16:00-0400 Systolic blood pressure 110 mm[Hg] Marlo Chun Other [facility] Other 12-30-2022 11:00-0400 Body height 172.72 cm Ralph Hernandez Other [facility] Other 12-30-2022 11:00-0400 Body mass index (BMI) [Ratio] 35.88 kg/m2 Ralph Hernandez Other [facility] Other 12-30-2022 11:00-0400 Body weight 107.05 kg Ralph Hernandez Other [facility] Other 12-30-2022 11:00-0400 Diastolic blood pressure 84 mm[Hg] Ralph Hernandez Other [facility] Other 12-30-2022 11:00-0400 Systolic blood pressure 118 mm[Hg] Ralph Hernandez Other [facility] Other 09-16-2022 09:40-0500 Body height 172.72 cm Ralph Hernandez Other [facility] Other 09-16-2022 09:40-0500 Body mass index (BMI) [Ratio] 34.97 kg/m2 Ralph Hernandez Other [facility] Other 09-16-2022 09:40-0500 Body weight 104.33 kg Ralph Hernandez Other [facility] Other 08-02-2022 12:00-0500 Body height 172.72 cm Ralph Hernandez Other [facility] Other 08-02-2022 12:00-0500 Body mass index (BMI) [Ratio] 34.97 kg/m2 Ralph Hernandez Other [facility] Other 08-02-2022 12:00-0500 Body weight 104.33 kg Ralph Hernandez Other [facility] Other 07-06-2022 11:30-0400 Diastolic blood pressure 80 mm[Hg] MD Lola Umana Work Phone: [facility] 07-06-2022 11:30-0400 Heart rate 75 /min MD Lola Umana Work Phone: [facility] 07-06-2022 11:30-0400 Respiratory rate 16 /min MD Lola Umana Work Phone: [facility] 07-06-2022 11:30-0400 SaO2% (BldA) [Mass fraction] 92 % MD Lola Umana Work Phone: [facility] 07-06-2022 11:30-0400 Systolic blood pressure 123 mm[Hg] MD Lola Umana Work Phone: [facility] 07-06-2022 09:54-0400 Body temperature 98.1 [degF] MD Lola mUana Work Phone: [facility] 07-06-2022 09:54-0400 Inhaled oxygen flow rate 6 L/min MD Lola Umana Work Phone: [facility] 07-06-2022 08:01-0400 Body height 172.72 cm MD Lola Umana Work Phone: [facility] 07-06-2022 08:01-0400 Body mass index (BMI) [Ratio] 34.5 kg/m2 MD Lola Umana Work Phone: [facility] 07-06-2022 08:01-0400 Body weight 103 kg MD Lola Umana Work Phone: [facility] 06-27-2022 10:30-0400 Body height 172.72 cm Marlo Adiel Other [facility] Other 06-27-2022 10:30-0400 Body mass index (BMI) [Ratio] 35.06 kg/m2 Marlo Adiel Other [facility] Other 06-27-2022 10:30-0400 Body weight 104.6 kg Marlo Adiel Other [facility] Other 06-27-2022 10:30-0400 Diastolic blood pressure 80 mm[Hg] Marlo Chun Other [facility] Other 06-27-2022 10:30-0400 SaO2% (BldA) [Mass fraction] 97 % Marlo Chun Other [facility] Other 06-27-2022 10:30-0400 Systolic blood pressure 140 mm[Hg] Marlo Adiel Other [facility] Other 06-10-2022 09:20-0400 Body height 172.72 cm Ralph Hernandez Other [facility] Other 06-10-2022 09:20-0400 Body mass index (BMI) [Ratio] 34.36 kg/m2 Ralph Hernandez Other [facility] Other 06-10-2022 09:20-0400 Body weight 102.51 kg Ralph Hernandez Other [facility] Other 05-31-2022 15:30-0400 Body height 172.72 cm Sofya Espinoza Other [facility] Other 05-31-2022 15:30-0400 Body mass index (BMI) [Ratio] 34.42 kg/m2 Sofya Espinoza Other [facility] Other 05-31-2022 15:30-0400 Body weight 102.7 kg Sofya Espinoza Other [facility] Other 05-31-2022 15:30-0400 Diastolic blood pressure 64 mm[Hg] Sofya Espinoza Other [facility] Other 05-31-2022 15:30-0400 Respiratory rate 18 /min Sofya Espinoza Other [facility] Other 05-31-2022 15:30-0400 SaO2% (BldA) [Mass fraction] 98 % Sofya Espinoza Other [facility] Other 05-31-2022 15:30-0400 Systolic blood pressure 108 mm[Hg] Sofya Espinoza Other [facility] Other 03-03-2022 16:00-0400 Body height 172.72 cm Mralo Chun Other [facility] Other 03-03-2022 16:00-0400 Body mass index (BMI) [Ratio] 35.09 kg/m2 Marlo Chun Other [facility] Other 03-03-2022 16:00-0400 Body weight 104.69 kg Marlo Chun Other [facility] Other 03-03-2022 16:00-0400 Diastolic blood pressure 70 mm[Hg] Marlo Chun Other [facility] Other 03-03-2022 16:00-0400 SaO2% (BldA) [Mass fraction] 97 % Marlo Chun Other [facility] Other 03-03-2022 16:00-0400 Systolic blood pressure 122 mm[Hg] Marlo Chun Other [facility] Other 01-20-2022 15:30-0400 Body height 172.72 cm Marlo Chun Other [facility] Other 01-20-2022 15:30-0400 Body mass index (BMI) [Ratio] 34.63 kg/m2 Marlo Chun Other [facility] Other 01-20-2022 15:30-0400 Body weight 103.33 kg Marlo Chun Other [facility] Other 01-20-2022 15:30-0400 Diastolic blood pressure 80 mm[Hg] Marlo Chun Other [facility] Other 01-20-2022 15:30-0400 SaO2% (BldA) [Mass fraction] 96 % Marlo Chun Other [facility] Other 01-20-2022 15:30-0400 Systolic blood pressure 110 mm[Hg] Marlo Chun Other [facility] Other 12-23-2021 15:30-0400 Body height 172.72 cm Marlo Chun Other [facility] Other 12-23-2021 15:30-0400 Body mass index (BMI) [Ratio] 34.69 kg/m2 Marlo Chun Other [facility] Other 12-23-2021 15:30-0400 Body weight 103.51 kg Marlo Chun Other [facility] Other 12-23-2021 15:30-0400 Diastolic blood pressure 84 mm[Hg] Marlo Chun Other [facility] Other 12-23-2021 15:30-0400 SaO2% (BldA) [Mass fraction] 97 % Marlo Chun Other [facility] Other 12-23-2021 15:30-0400 Systolic blood pressure 122 mm[Hg] Marlo Chun Other [facility] Other 11-22-2021 09:30-0400 Body height 172.72 cm Dylan Elscira Other [facility] Other 11-22-2021 09:30-0400 Body mass index (BMI) [Ratio] 34.21 kg/m2 Dylan Nieto Other [facility] Other 11-22-2021 09:30-0400 Body weight 102.06 kg Dylan Nieto Other [facility] Other 09-29-2021 10:00-0500 Body height 172.72 cm Dylan Nieto Other [facility] Other 09-29-2021 10:00-0500 Body mass index (BMI) [Ratio] 34.21 kg/m2 Dylan Nieto Other [facility] Other 09-29-2021 10:00-0500 Body weight 102.06 kg Dylan Nieto Other [facility] Other 07-27-2021 13:30-0500 Body height 172.72 cm Jeana Lauren Other [facility] Other 07-27-2021 13:30-0500 Body mass index (BMI) [Ratio] 34.21 kg/m2 Jeana Lauren Other [facility] Other 07-27-2021 13:30-0500 Body temperature 98 [degF] Jeana Lauren Other [facility] Other 07-27-2021 13:30-0500 Body weight 102.06 kg Jeana Lauren Other [facility] Other 07-27-2021 13:30-0500 SaO2% (BldA) [Mass fraction] 98 % Jeana Lauren Other [facility] Other Encounters Encounter Date Encounter Type Care Provider Facility Start: 05-29-2024 End: 05-29-2024 ambulatory Alexis ALCANTARA Facility:[facility] Start: 05-06-2024 ambulatory Alexis ALCANTARA Facility:[facility] Start: 06-01-2023 End: 06-01-2023 ambulatory Sang Sullivan Other [facility] Other Start: 06-01-2023 Office outpatient visit 15 minutes Sang Sullivan [facility] Start: 03-20-2023 End: 03-20-2023 ambulatory Marlo Chun Other [facility] Other Start: 03-20-2023 Office outpatient visit 25 minutes Marlo Chun [facility] Start: 03-07-2023 (PROC) PROCEDURE Marlo Santizo [facility] Start: 03-07-2023 End: 03-07-2023 ambulatory Marlo Chun Other [facility] Start: 02-28-2023 End: 02-28-2023 ambulatory Marlo Chun Other [facility] Other Start: 02-28-2023 Telephone encounter Marlo Chun [facility] Start: 02-27-2023 End: 02-27-2023 ambulatory Marlo Chun Other [facility] Other Start: 02-27-2023 Office outpatient visit 25 minutes Marlo Chun [facility] Start: 12-30-2022 End: 12-30-2022 ambulatory Ralph Hernandez Other [facility] Other Start: 12-30-2022 Office outpatient visit 15 minutes Ralph Hernandez [facility] Start: 09-16-2022 End: 09-16-2022 ambulatory Ralph Hernandez Other [facility] Other Start: 09-16-2022 Postop follow up vis it related to original px Ralph Hernandez [facility] Start: 08-02-2022 End: 08-02-2022 ambulatory Ralph Hernandez Other [facility] Other Start: 08-02-2022 Postop follow up vis it related to original px Ralph Hernandez [facility] Start: 07-06-2022 End: 07-06-2022 Admission to same day surgery center MD Lola Umana Work Phone: [facility] [place] Start: 07-06-2022 End: 07-06-2022 ambulatory Lola Umana Facility:[facility] Start: 07-06-2022 End: 07-06-2022 ambulatory MD Lola Umana Work Phone: [facility] Work Phone: Start: 07-04-2022 End: 07-04-2022 ambulatory Ralph Hernandez Facility:[facility] Start: 07-04-2022 End: 07-04-2022 ambulatory MD Lola Umana Work Phone: [facility] Work Phone: Start: 07-04-2022 End: 07-04-2022 Patient encounter procedure MD Lola Umana Work Phone: [facility] Start: 06-28-2022 End: 06-28-2022 ambulatory Ralph Hernandez Other [facility] Other Start: 06-28-2022 Telephone encounter Ralph Hernandez [facility] Start: 06-27-2022 End: 06-27-2022 ambulatory Marlo Chun Other [facility] Other Start: 06-27-2022 Office outpatient visit 25 minutes Marlo Chun [facility] Start: 06-23-2022 End: 06-23-2022 ambulatory Ralph Hernandez Facility:[facility] Start: 06-23-2022 End: 06-23-2022 ambulatory MD Lola Umana Work Phone: [facility] Work Phone: Start: 06-23-2022 End: 06-23-2022 Patient encounter procedure MD Lola Umana Work Phone: [id number] Start: 06-10-2022 End: 06-10-2022 ambulatory Ralph Hernandez Other [facility] Other Start: 06-10-2022 Office outpatient visit 40 minutes Ralph Hernandez [facility] Start: 05-31-2022 End: 05-31-2022 ambulatory Sofya Espinoza Other [facility] Other Start: 05-31-2022 Office outpatient visit 15 minutes Sofya Espinoza [facility] Start: 04-25-2022 End: 04-26-[address] LOLA UMANA Facility:[facility] Start: 03-03-2022 End: 03-03-2022 ambulatory Marlo Chun Other [facility] Other Start: 03-03-2022 Office outpatient visit 15 minutes Marlo Adiel [facility] Start: 02-24-2022 (Procedure) Short Marlo Chun [facility] Start: 02-24-2022 End: 02-24-2022 ambulatory Marlo Chun Other [facility] Other Start: 02-10-2022 End: 02-10-2022 ambulatory Marlo Chun Other [facility] Other Start: 02-10-2022 Telephone encounter Marlo Chun [facility] Start: 01-20-2022 End: 01-20-2022 ambulatory Marlo Chun Other [facility] Other Start: 01-20-2022 Office outpatient visit 25 minutes Marlo Adiel [facility] Start: 01-06-2022 (Procedure) Carlie Chun [facility] Start: 01-06-2022 End: 01-06-2022 ambulatory Marlo Chun Other [facility] Other Start: 12-23-2021 End: 12-23-2021 ambulatory Marlojing Chun Other [facility] Other Start: 12-23-2021 Office outpatient visit 15 minutes Marlo Adiel [facility] Start: 12-16-2021 (Procedure) Short Marlo Chun [facility] Start: 12-16-2021 End: 12-16-2021 ambulatory Marlo Chun Other [facility] Other Start: 12-06-2021 End: 12-06-2021 ambulatory Marlo Chun Other [facility] Other Start: 12-06-2021 Telephone encounter Marlo Adiel [facility] Start: 11-22-2021 End: 11-22-2021 ambulatory Dylan Nieto Other [facility] Other Start: 11-22-2021 Office outpatient visit 15 minutes Dylan Nieto [facility] Start: 10-08-2021 End: 10-09-[address] DOCTOR ACUÑA Facility:[facility] Start: 10-06-2021 End: 10-06-2021 ambulatory Dylan Nieto Other [facility] Other Start: 10-06-2021 Telephone encounter Dylan Short [facility] Start: 09-29-2021 End: 09-29-2021 ambulatory Dylan Nieto Other [facility] Other Start: 09-29-2021 Office outpatient visit 15 minutes Dylan Nieto [facility] [place] Start: 09-28-2021 End: 09-29-[address] DOCTOR ACUÑA Facility:[facility] Start: 09-12-2021 End: 10-09-[address] LOLA UMANA Facility:[facility] Start: 09-01-2021 End: 09-10-[address] LOLA UMANA Facility:[facility] Start: 08-23-2021 End: 08-24-[address] LOLA UMANA Facility:[facility] Start: 07-27-2021 End: 07-27-2021 ambulatory Jeana Lauren Other [facility] Other Start: 07-27-2021 Office outpatient visit 15 minutes Jeana Lauren [facility] [place] Start: 09-28-2020 End: 09-28-2020 Patient encounter procedure Lola Umana -Pre-Surgical Testing Start: 09-16-2020 End: 09-16-2020 Patient encounter procedure Lola Umana -Pre-Surgical Testing Start: 09-02-2020 End: 09-02-2020 Patient encounter procedure Lola Umana -XRay [facility] Procedures Date Procedure Procedure Detail Performing Clinician Start: 07-06-2022 Excision of lumbar intervertebral disc MD Lola Umana Work Phone: Start: 09-02-2020 Radiography of cervi sergio spine Lola Umana Plan of Treatment Date Care Activity Detail Author Start: 07-06-2022 [facility] Start: 07-06-2022 [facility] Start: 07-06-2022 X-ray of lumbar spin e, single view XR lumbar spine 1V [facility] Start: 07-06-2022 XR Lumbar spine Sing [place] view [facility] Patient referral [facility] Work Phone: Immunizations Immunization Date Immunization Notes Care Provider Fa marline 12-27-2020 COVID-19 mRNA Comiramber (Pfizer) MD Lola Umana Work Phone: [facility] 12-05-2020 COVID-19 mRNA Comiramber (Pfizer) MD Lola Umana Work Phone: [facility] Payers Date Payer Category Payer Self-pay [id number] 1975 Unknown [id number] 2.16.84 [id number] 1977 Unknown [id number] 1977 Unknown [id number] .16.84 [id number] 1977 Unknown [id number] .16.84 [id number] 1977 Unknown [id number] .16.84 [id number] 1977 Unknown [id number] 2.16.84 [id number] 1977 Unknown [id number] 2.16.8 [id number] 1959 Blue Cross Blue [facility] GTFAN [id number] 1959 Unknown [id number] Unknown Self Pay [id number] Unknown [id number] 2.16.8 [id number] Unknown [id number] 2.16.8 [id number] Unknown [id number] 2.16.8 [id number] Social History Date Type Detail Facility Start: 09-16-2020 Tobacco smoking status [facility] [[email or web address] Never smoked tobacco (finding) [facility] Start: 1975 Sex Assigned At Male F [facility] Sex Assigned At Sex Assigned At Bir th [facility] [employer] Other Start: 06-23-2022 End: 07-06-2022 Tobacco smoking status [facility] [[email or web address]] Smoker (finding) [facility] Medical Equipment Procedure Code Equipment Code Equipment Origin al Text Equipment Identifier Dates Cervical total d isc replacement prosthesis, sterile ([id number] [facility] Start: 09-29-2020 Goals Date Patient Goal Desired Activity /State Clinical Notes 07-27-2021 to 05-29-2024 Note Date & Type Note Facility 05-29-2024 Note General Surgery Offi ce/Clinic Note Chief Complaint consultation for colonoscopy HPI Staff 49 year old male presents on consultation from Dr. Tanner for screening colonoscopy. Denies abdominal or rectal pain. No rectal bleeding or change in bowel habits, Denies nausea or vomiting. No unexplained weight loss. Never had colonoscopy in the past. No known family history of colon cancer. History of Present Illness 49 yo male with h/o BERTHA, referred for colorectal screening; denies change in bms or blood in stools, no abd complaints; no previous colonoscopy; no abdominal operations; no asa or NSAID use; chews tobacco daily; no fmhx of GI malignancy or IBD. Review of Systems PHQ Score Initial Depression Screen Score: 0 SCORE ROS - Provider Constitutional: no fever, no sweats, no weight loss. Eyes: no glasses, no blurred vision, no visual loss. ENMT: no dentures, no hoarseness, no swallowing difficulties, no hearing loss, no ear infection(s), no nose bleeds. Cardiovascular: normal blood pressure, no chest pain, regular heartbeat, no heart murmur. Respiratory: no shortness of breath, no cough, no asthma, no wheezing. Gastrointestinal: no nausea, no vomiting, no diarrhea, no constipation, no blood in stool, no change in bowel habits, no abdominal pain, no hepatitis. Genitourinary: no kidney stones, no urine infection, no dysuria. Musculoskeletal: no pain, no weakness. Skin: no changing moles, no rash, no skin lumps. Neurologic: no seizures, no epilepsy, no headache. Psychiatric: no emotional or psychiatric problem. Heme/Lymph: no bleeding problems, no anemia, no blood clots, no transfusions. Allergy/Immunologic: no swollen lymph nodes/glands, no IV drug abuse. Other: Additional ROS info: Except as noted in the above Review of Systems and in the History of Present Illness, all other systems have been reviewed and are negative or noncontributory. Physical Exam Vitals & Measurements HR: 72(Peripheral) RR: 16 BP: 118/74 HT: 68 in HT: 172.72 cm WT: 106 kg WT: 233.2 lb BMI: 35.53 HEENT: normal conjunctiva, sclera clear, no scleral icterus, EOM intact, PERRLA, oral mucosa moist without lesions. Neck: trachea midline, no mass, symmetric, no thyromegaly or nodules, no adenopathy Respiratory: lungs CTA, respirations non labored. Cardiovascular: regular rate and rhythm, no murmur, no pedal edema or varicosities. Gastrointestinal: obese, soft, non distended, no tenderness, no masses, no palpable hernias, diastasis recti no, no hepatosplenomegaly; normal bs Lymphatic: no cervical adenopathy, no supraclavicular adenopathy. Musculoskeletal: normal gait, digits and nails without infection, nodes, cyanosis, clubbing. Skin: no rashes, no lesions, no ulcers, no subcutaneous nodules, induration. Psychiatric/Neuro: oriented to time, place, person, judgement normal, affect appropriate for age, insight intact, no focal deficits. Tests: surgical options, risks, and possible complications with patient. Assessment/Plan 1. Screening for malignant neoplasm of colon (Z12.11: Encounter for screening for malignant neoplasm of colon) plan colonoscopy under anesthesia, informed consent obtained. Follow-up No qualifying data available Problem List/Past Medical History Ongoing BMI 35.0-35.9,adult Obesity due to excess calories Screening for malignant neoplasm of colon Sleep apnea Historical No qualifying data Procedure/Surgical History Cervical discectomy, Lumbar discectomy. Medications No active medications Allergies No Known Allergies No Known Medication Allergies Social History Alcohol Current, Beer, 3-5 times per week, 05/29/2024 Substance Abuse - Denies Substance Abuse, 05/29/2024 Tobacco Never (less than 100 in lifetime) Tobacco Use:. Smokeless tobacco user within last 30 days Smokeless Tobacco Use:. Oral, Started age 18.0 Years. Yes, 05/29/2024 Family History Diabetes mellitus type 1: Father. Primary malignant neoplasm of female breast: Mother. Immunizations Vaccine Date Status Comments SARS-CoV-2 (COVID-19) mRNA BNT-162b2 vax 12/27/2020 Recorded 2024-05-22: [id number] SARS-CoV-2 (COVID-19) mRNA BNT-162b2 vax 12/05/2020 Recorded 2024-05-22: [id number] [facility] Comment on above: Result Comment: Elec tronically Signed By: MARICRUZ ANDERSEN, Alexis Alford\vita\Date and Time Signed: 05/29/24 14:37 EDT 06-01-2023 Evaluation note Encounter Date Diagnosis Assessment Notes May, Poison adrianna dermatitis (ICD-10 - L23.7) Pt to take meds as prescribed with food. No other nsaids while on steroid. Pt to avoid contact with allergen. Avoid hot showers as it draws out rash. Pt to use topical calamine lotion or benadryl cream prn for itching. Otc benadryl prn. Pt to f/u with pcp as needed for persistent or worsening symptoms. Pt understood and agreed to treatment plan. [facility] Other 07-10-2023 Evaluation note* Encounter Date Diagnosis Assessment Notes Treatment Notes Treatment Clinical Notes Mar, Lumbosacral spondylosis (ICD-10 - M47.817) Consider lumbar facet medial branch nerve blocks in the future if needed Mar, Lumbar radiculopathy (ICD-10 - M54.16) 48 year old male here for follow up status post right sacroiliac joint injection under fluoroscopic guidance. Patient reports 80-90% pain relief as well as improved walking, standing and daily functions for 4-5 days following procedure. He voices continued complaints of right sided low back pain with radiation down the posterior aspect of the right thigh to the calf. I recommend proceeding with a right L4, L5 transforaminal epidural steroid injection to help relieve his right lower extremity pain. Risks and benefits of procedure explained to patient; patient verbalizes understanding. Mar, Chronic pain (ICD-10 - G89.29) Follow up after procedure. Mar, Sacroiliitis (ICD-10 - M46.1) Stable. [facility] Other 06-19-2023 Evaluation note* Encounter Date Diagnosis Assessment Notes Treatment Notes Treatment Clinical Notes Feb, Inflammation of right sacroiliac joint (ICD-10 - M46.1) 47 y/o male here for follow up. He was last seen 8 months ago. He was last seen June 2022. He reports a discectomy with Dr. Hernandez since his last office visit, he feels this provided pain relief until approx. 2 months ago. He voices complaints of low back pain with radiation down the posterior aspect of the right lower extremity to the knee. He feels his pain is worse with laying. He states he followed up with Dr. Hernandez recently however surgical intervention is not currently recommended. Anatomy of spine discussed in detail with patient in regards to patients condition. Patient is a candidate for a right sacroiliac joint injection under fluoroscopic guidance. Risks and benefits of procedure explained to patient; patient verbalizes understanding. Feb, Chronic pain (ICD-10 - G89.29) Follow up after procedure Feb, Lumbosacral spondylosis (ICD-10 - M47.817) I will order updated imaging of the lumbar spine at this time to further evaluate his pain [facility] Other 04-21-2023 Evaluation note* Encounter Date Diagnosis Assessment Notes Treatment Notes Treatment Clinical Notes Dec, Inflammation of right sacroiliac joint (ICD-10 - M46.1) The patient primarily has sacroiliac pain no right leg pain. He has a negative straight leg raise. He did well from his discectomy this is started up over a short period of time I will start him with a prednisone taper we will reevaluate him in 3 weeks if he continues to improve but still has some symptoms I would consider pain management if he gets worse I would look into physical therapy and then ordering an MRI. [facility] Other 01-06-2023 Evaluation note* Encounter Date Diagnosis Assessment Notes Treatment Notes Treatment Clinical Notes Sep, Lumbar radiculopathy (ICD-10 - M54.16) Clinically at 3 months po patient's doing well. He has a little bit of S1 numbness on the right lateral side of the foot. He is back to work full-time. He declines any physical therapy. I will see him on an as-needed basis in the future Sep, Lumbosacral disc herniation (ICD-10 - M51.27) [facility] Other 11-22-2022 Evaluation note* Encounter Date Diagnosis Assessment Notes Treatment Notes Treatment Clinical Notes Jul, Lumbosacral disc herniation (ICD-10 - M51.27) 1 month postop the patient is doing well. He will go back to work on a limited duty basis on August 18..We will see him again in 2 months for follow-up. He is aware of his restriction [facility] Other 10-26-2022 History general Narrative - Reported* Type Description Date Surgical History vasectomy Surgical History Artificial disc C6-7 Surgical History L5-S1 discectomy with Dr Hernandez 07/06/2022 Hospitalization History See Above [facility] Other 10-17-2022 Evaluation note* Encounter Date Diagnosis Assessment Notes Treatment Notes Treatment Clinical Notes Jun, Lumbar radiculopathy (ICD-10 - M54.16) 47 year old male here for follow up and medication refill for chronic pain. He voices complaints of low back pain with radiation down the right lower extremity. He continues taking Gabapentin and Celebrex with relief and is requesting a refill of these today. I discussed different treatment options in detail with the patient. He does not wish to proceed with injections at this time as he is scheduled for surgery with Dr Hernandez and feels the medication is managing his pain in the meantime. I encouraged the patient to continue taking medications as prescribed and I will refill his Gabapentin and Celebrex today as he feels these are providing an element of relief. Jun, Sacroiliitis (ICD-10 - M46.1) In the future if the pain persists, we can consider proceding with sacroiliac joint injection under fluoroscopic guidance. In the meantime, he is encouraged to follow up with Dr Hernandez for surgery as scheduled. Jun, Chronic pain (ICD-10 - G89.29) Continue taking medications as prescribed. [facility] Other 09-30-2022 Evaluation note* Encounter Date Diagnosis Assessment Notes Treatment Notes Treatment Clinical Notes May, Lumbar radiculopathy (ICD-10 - M54.16) May, Displacement of lumbar disc with radiculopathy (ICD-10 - M51.16) This is a patient that my previous partner had taken care of. I reviewed all past notes. I independently reviewed the MRI of the lumbar spine and the report. This patient has an L5-S1 right-sided disc herniation quite focal most likely causing a right S1 radiculopathy. He has symptoms clinically. He has attempted using 2 different anti-inflammatories with no benefit. He has had behavior modification with no benefit. The pain management injections were done. He has had greater than 8 sessions of physical therapy with no benefit. Pain management has also been tried giving only days of relief. He is in need of a microdiscectomy L5-S1 on the right. I reviewed all images face to face with the patient and discussed treatment options in detail, along with risks and benefits of surgery. The indication operation postop course risk benefits of surgery and complications including spinal fluid leak infection bleeding nerve damage and incomplete relief of symptoms were discussed. The patient would like to proceed with surgical intervention. [facility] Other 09-20-2022 Evaluation note* Encounter Date Diagnosis Assessment Notes Treatment Notes Treatment Clinical Notes May, Lumbar radiculopathy (ICD-10 - M54.16) 47 year old male here for follow up and medication refill for chronic pain. He voices continued complaints of intermittent low back pain with radiation to the posterior aspect of the right thigh to the ankle. He feels his lower extremity pain is most botehrsome. He continues taking Gabapentin but does not feel like this has provided relief of his symptoms. Different treatment options were discussed in deatil with the patient, and I recommend he follow up with Dr Hernandez as scheduled. In the meantime, I will increase Gabapentin to 300mg three times daily. He can continue Celebrex as prescribed May, Sacroiliitis (ICD-10 - M46.1) In the future if the pain persists, we can consider proceding with sacroiliac joint injection under fluoroscopic guidance. May, Chronic pain (ICD-10 - G89.29) Gabapentin increased to 300mg TID. Continue Celebrex as prescribed [facility] Other 06-23-2022 Evaluation note* Encounter Date Diagnosis Assessment Notes Treatment Notes Treatment Clinical Notes Feb, Lumbar radiculopathy (ICD-10 - M54.16) 46 year old male here for follow up status post right L4 and L5 transforaminal epidural steroid injection under fluoroscopic guidance. Patient reports 70% pain relief as well as improved walking, standing and daily functions following procedure. He denies any back pain today. He reports some residual right lower extremity pain. Anatomy of spine discussed in detail with patient in regards to patients condition. Overall, he appears to be doing very well and does not require further treatment at this time. I recommend he increase his activities as tolerated. He is counseled against any excessive bending or twisting. He is advised to call the office if his pain returns. Feb, Sacroiliitis (ICD-10 - M46.1) Stable. Patient is encouraged to call the office if his symptoms return Feb, Chronic pain (ICD-10 - G89.29) Stable. Patient encouraged to call the office if his symptoms return [facility] Other 05-12-2022 Evaluation note* Encounter Date Diagnosis Assessment Notes Treatment Notes Treatment Clinical Notes January, Lumbar radiculopathy (ICD-10 - M54.16) 46 year old male here for follow up status post right L4 and L5 transforaminal epidural steroid injection under fluoroscopic guidance. Patient reports 70-80% pain relief as well as improved walking, standing and daily functions following procedure. He denies low back pain today. He does note an intermittent numbness/tingling to the right lower extremity. Anatomy of spine discussed in detail with patient in regards to patients condition. Overall, he appears to be doing very well and does not require further treatment at this time. I recommend he increase his activities as tolerated. He is counseled against any excessive bending or twisting. He is advised to call the office if his pain returns. January, Sacroiliitis (ICD-10 - M46.1) In the future if the pain persists, we can consider proceding with a sacroiliac joint injection under fluoroscopic guidance January, Chronic pain (ICD-10 - G89.29) Patient is encouraged to call the office if his symptoms return [facility] Other 04-14-2022 Evaluation note* Encounter Date Diagnosis Assessment Notes Treatment Notes Treatment Clinical Notes Dec, Lumbar radiculopathy (ICD-10 - M54.16) 46 year old male here for follow up status post right L5 and S1 transforaminal epidural steroid injection under fluoroscopic guidance. Patient reports 30-40% pain relief as well as improved walking, standing and daily functions following procedure. He voices continued complaints of right sided low back/buttock pain with radiation to the posterior aspect of the right thigh to the knee. He notes intermittent radiation to the ankle. Anatomy of spine discussed in detail with patient in regards to patients condition. Patient is a candidate for a L4,5 transforaminal epidural steroid injection on the right side under fluoroscopic guidance. Risks and benefits of procedure explained to patient; patient verbalizes understanding. Dec, Chronic pain (ICD-10 - G89.29) Continue medications as prescribed Dec, Degenerative lumbar disc (ICD-10 - M51.36) Continue with current treatment plan [facility] Other 2022 Evaluation note* Encounter Date Diagnosis Assessment Notes Treatment Notes Treatment Clinical Notes Nov, Lumbosacral disc herniation (ICD-10 - M51.27) I have discussed management options with the patient extensively. He clearly meets criteria for simple surgical decompression with a discectomy on the right side at L5-S1. He has really not had a lot of conservative therapy which I think also would be appropriate. As such we will set him up for a focal S1 epidural steroid injection on the right side and if he has good relief we will follow him symptomatically otherwise we will consider him for a focal microdiscectomy. There is of course risk that he could end up with mechanical instability particular with the degenerative disease that he has and also might need to have a single or multilevel fusion. The patient appears to be comfortable proceeding along this path. I will send a referral to pain management Nov, Degenerative lumbar disc (ICD-10 - M51.36) [facility] Other 01-19-2022 Evaluation note* Encounter Date Diagnosis Assessment Notes Treatment Notes Treatment Clinical Notes Sep, Lumbar radiculopathy (ICD-10 - M54.16) The patient's findings are consistent with an L5 or S1 radiculopathy that is failed to respond to conservative treatment including medication rest and significant amounts of physical therapy. At this time I think the patient warrants having an MRI scan of his lumbar spine we will see him back in the office at that time. Sep, Cervical disc disorder with radiculopathy (ICD-10 - M50.10) Patient is doing well from a cervical standpoint we will see him again in a year with repeat set of x-rays. [facility] Other 11-16-2021 Evaluation note* Encounter Date Diagnosis Assessment Notes Treatment Notes Treatment Clinical Notes Jul, Contact with and (suspected) exposure to other viral communicable diseases (ICD-10 - Z20.828) Jul, COVID-19 (ICD-10 - U07.1) Today you tested positive for the COVID virus. This mean you need to follow all CDC quarantine guidelines found at [email or web address] v. It is important to rest, increase fluids, and stay at home. Contact PCP and inform them of results. Medications like Mucinex, Cepacol, Tylenol, saline nasal spray are over the counter medications that can help with the symptoms. Current guidelines include staying home for at least 10 days, having no fever above 100.4 for 24 hours without medication and having significant improvement of symptoms before you are allowed to stop your quarantine. Contact primary care and ask for guidance is essential to follow up Jul, Other Additional time spent conducting pre-visit phone call, screening for symptoms, instructions on social distancing, application and removal of PPE, and cleaning of examination room, equipment and supplies was preformed. Patient education given for testing methodology and results. Patient care instructions given in writting by [facility] Care At Home document. [facility] Other Evaluation noteNo InformationNort [employer] Other evaluation noteNo assessment information available [facility] [employer] Work Phone: History general Narrative - Reported* Type Description Date Surgical History vasectomy Surgical History Artificial disc C6-7 Hospitalization History See Above [facility] Other Hospital Discharge instructions Additional Instructions DISCHARGE INSTRUCTIONS FOR LUMBAR/THORACIC DISCECTOMY, LAMINECTOMY, LAMINOTOMY, DECOMPRESSION DIET -No restrictions unless diabetic or cardiac ACTIVITY -Activity as tolerated; no lifting over 10 pounds -Encourage ambulation -No driving until seen by your physician; may ride in car -No need to cover incision site -May shower on Monday. -There is a liquid bandage on the wound, no dressing should be required unless drainage is noted. -Is ice 20 minutes every 1-2 hours as needed for back spasm -Use the prednisone provided if your leg pain returns to a significant degree. Otherwise please do not use the prednisone. OTHER -Call your physician's office for any of the following: fever, swelling, nausea, vomiting, drainage, numbness, tingling, or bowel and bladder changes. -Please call your physician's office to make an appointment to see your physician in two weeks.[facility] Work Phone: Advance Directives No Advanced Directives Records Found Advance Directive Response Recorded Date/ Time Advance Directives No June 12, 2020 12:00pm Advance Directive Response Recorded Date/ Time Advance Directives No June 12, 2020 1:00pm Chief Complaint and Reason for Visit Chief Complaint M50.10 Radiculopathy Chief Complaint M50.10 Radiculopathy Radiculopathy Chief Complaint radiculopathy Chief Complaint radiculopathy radiculopathy Chief Complaint radiculopathy radiculopathy radiculopathy Assessments No Assessments Information AvailableNo Assessments Information Available Reason for Referral Reason *Waiting for appt Evaluate and Treat CRUZ Right SI Diagnosis 1 Lumbosacral disc her niation (M51.27) Referral Organization [facility] Referring Provider First Name Dylan Referring Provider Last Name Gerson Referring Provider Specialty Neurosurger y Referred Organization [facility] [place] Referred Provider Vikas Negrete Referred Address [address] [place],[address] Referred Provider Specialty Pain Medicin e Referral Priority Routine General Notes Gaby Almonte M 022 10:58:17 AM >Received today and send P2P Summary Purpose Family History Relationship Condition Age at Onset Recorded Date/T sriram father Diabetes mellitus Unknown History of coronary artery bypass surgery Unknown No Family History Records Found Additional Source Comments REASON FOR VISIT (unrecogniz ed section and content) F/U AFTER RIGHT L4,5 LTR#15 FONTENOT 4 RUNNER, EXPOSED, UPPER RESPIRATORY SXS, COVID Provider Vis[facility] f/u Artificial disc XR @ [place], Patient also has about a 2 to 3-month history of back pain and right buttock and posterior posterior lateral leg pain coming to the side of the calf and just to the top of the foot.No InformationMRI RESULTS L/SRIGHT L5, S1 TRANSFORAMINAL EPIDURAL STEROID INJ/ELPain Medicine Office NotesRIGHT L4,5 TRANSFORAMINAL EPIDURAL STEROID INJ/ELFOLLOW UP AFTER RIGHT LTRFOLLOW UP AFTER RIGHT LTRNo InformationRIGHT L4,5 TRANSFORAMINAL EPIDURAL STEROID INJECTIONMED REFILL FOR PAIN CONTROLfailed pain managementMED REFILL FOR CHRONIC PAINNeurosurgery Office NotesL5-S1 discectomy right4 wk po/ L5-S1 discectomy/ mo po Discectomyrecurring painBACK PAIN RADIATING R LOWER EXTREMITYPain Medicine Office NotesRIGHT SACROILIAC JOINT INJ/ELFOLLOW UP AFTER RIGHT SIPoison adrianna on arms (unrecognized sect ion and content) No Status Records FoundNo Status Records FoundNo Status Records Found INFORMATION SOURCE (unrecogn ized section and content) DATE CREATED AUTHOR 05/03/2022 [facility] DATE CREATED AUTHOR AUTHOR'S ORGANIZ ATION 10/15/2022 [facility] DATE CREATED AUTHOR AUTHOR'S ORGANIZ ATION 06/01/2024 [facility] Care Teams (unrecognized sec tion and content) Team Status: Inactive Member Role Status Dates Lola Umana MD Primary Care Provider Active Ralph Hernandez MD Attending Provider Active Team Status: Active Member Role Status Dates Lola Umana MD Primary Care Provider Active Goals (unrecognized section and content) Goals may be documented in a n alternate section FOR RECORDS PERTAINING TO PATIENTS WHO ARE OR HAVE BEEN ENROLLED IN A CHEMICAL DEPENDENCY/SUBSTANCEABUSE PROGRAM, SOME INFORMATION MAY BE OMITTED. This clinical summary was aggregated from multiple sources. Caution should be exercised in using it in the provision of clinical care. This summary normalizes information from multiple sources, and as a consequence, information in this document may materially change the coding, format and clinical context of patient data. In addition, data may be omitted in some cases. CLINICAL DECISIONS SHOULD BE BASED ON THE PRIMARY CLINICAL RECORDS. [facility] [employer] [facility]. provides no warranty or guarantee of the accuracy or completeness of information in this document.
== END 2024-06-21 14:47 | disposition home or self-care (01) ==
LOC: PST 14:46
PROVIDERS: PCP Family Medicine; Visit Provider Surgery
DX: Z01.818 Encounter for other preprocedural examination (principal); Z12.11 Encounter for screening for malignant neoplasm of colon

== ENCOUNTER 2024-07-10 06:19 | Day surgery (SDC) | payer BC, SELFPAY ==
--- NOTE | 2024-07-10 | OP_ITS ---
OPERATION DATE: 07/10/2024 PREOPERATIVE DIAGNOSIS: Colorectal screening. POSTOPERATIVE DIAGNOSIS: Normal colonoscopy to cecum. PROCEDURE: Colonoscopy to cecum. SURGEON: Alexis Ruffin M.D. ANESTHESIA: Monitored anesthesia care. ESTIMATED BLOOD LOSS: Zero. INDICATIONS AND CONSENT: Patient is a 49-year-old male presents for colorectal screening. Indications, risks, benefits, alternatives of proceeding with colonoscopy were explained extensively to the patient, including the risks of bleeding, colon perforation or anesthetic complications. All of his questions were answered. Informed consent was obtained. PROCEDURE: Patient brought to the operating room, placed in the left lateral decubitus position. Monitored anesthesia care was provided. Rectal exam was performed which revealed no masses or blood. The scope was inserted into the anal canal. Under direct visualization was advanced. It was advanced to the cecum where cecal markings were clearly identified. There was noted to be a good prep. Upon withdrawal of the scope, mucosal surfaces were carefully examined. There were no mass lesions or polyps. No inflammatory changes or ulcerations. No significant diverticulosis. The scope was retroflexed in the anal canal. There was no significant hemorrhoidal disease. Scope was then withdrawn. Patient tolerated procedure well, was sent to recovery room in good condition. F/u screening colonoscopy should be in 10 years. CC: Yobany Vaughan
--- OUTSIDE RECORDS SUMMARY | 2024-07-10 06:22 | XMS_ITS | CCD ---
Author Organization [facility] Care Team Providers Care Pulp Drier Name Role Phone Lola Umana Primary Care Provider Dylan Nieto Attending Provider [phone] Marlo Chun Unavailable Jeana Lauren Unavailable Dylan Nieto Unavailable ERWIN, DR LOLA Levine Admitting Unavailable UMANA, DR LOLA Levine Attending Unavailable UMANA, DR LOLA Levine Consulting Unavailable UMANA, DR LOLA Levine Primary Care Unavailable WILBEREBER, DR ISABELA Alford Consulting Unavailable MISC, DR GUPTA Attending Unavailable MISC, DR GUPTA Admitting Unavailable [place], DR PHU Patrick Consulting Unavailable UMANA, DR LOLA Levine Primary Care Unavailable MISC, DR GUPTA Consulting Unavailable MISC, DR GUPTA Attending Unavailable MISC, DR GUPTA Consulting Unavailable UMANA, DR LOAL Levine Primary Care Unavailable MISC, DR GUPTA [...] Lola Umana Primary Care Provider MD Ralph Hernandez Attending Provider Lola Umana Primary Care Unavailable [...] Michael Carroll Propensity to adverse reactions rash [facility] Other (1 source) No Known Medication Allergies; Translations: [No Known Medication Allergies] Propensity to adverse reactions (disorder) [facility] Medications Current Medications Medication Drug Class(es) [...] you for choosing us for your care. [facility] Dannie 07-06-2022 L - -------- Specimen: [id number] Received: 07/06/22 Status: NASREEN Brenda Num: [id number] Spec Type: Surgical Subm Dr: Ralph Hernandez MD Tissues: A Disc - Intervertebral/Lumbar /Cervical (LUMBAR DISC) Procedures: HE Stain, Gross/Micro L3 -------- Age/ Patient Sex Location Account Attending Physician -------- Tylor Wall 47/M [place] [id number] Ralph Hernandez MD -------- SPEC NUM: [id number] RECD: 07/06/22 STATUS: NASREEN OLIVER NUM: [id number] ERIC: 07/06/[address] [facility] [address]: Ralph Hernandez MD ENTERED: 07/06/[address] [facility] [address]: ANTHONY TYPE: Surgical DEPT: S ORDERED: HE Stain, Gross/Micro L3 ORDERED: HE Stain, Gross/Micro L3 Pathological Diagnosis Lumbar disc, discectomy: - Benign degenerated cartilage tissue. Clinical Information Left L5-S1 disc herniation Gross Description Received in formalin labeled with the patient's name, number and lumbar disc is a 4.5 x 2.3 x 1.2 cm aggregate of coon-pink fibrocartilaginous tissue. [employer] Consultant sections are submitted in one cassette labeled A1. Microscopic Description One glass slide with H E stained material has been examined. The microscopic findings support the above pathologic diagnosis. CPT Codes 52848 -------- -------- Specimen: [id number] Received: 07/06/22 Status: NASREEN Brenda Num: [id number] Spec Type: Surgical Subm Dr: Ralph Hernandez MD Tissues: A Disc - Intervertebral/Lumbar /Cervical (LUMBAR DISC) Procedures: HE Stain, Gross/Micro L3 -------- Patient: Tylor Wall [id number] (Continued) -------- Signed (signature on file) Kylie Echeverria MD 07/07/[address] [facility] XR lumbar spine 1Von 022 XR lumbar spine 1V [address] [address] XRay Report Signed Patient: Tylor Wall MR#: [id number] : 1975 Acct:[id number] Age/Sex: 47 / M ADM Date: 07/06/22 Loc: [place] Room: Type: [facility] Attending Dr: Ralph Hernandez MD Copies to: Ralph Hernandez MD Ordering Provider: Ralph Hernandez MD Date of Service: 07/06/22 XR/XR lumbar spine 1V: . Intraoperative study. Reason for exam: Lumbar discectomy. FINDINGS: One image was obtained intraoperatively. 30 seconds of fluoroscopic time is utilized. XR/XR lumbar spine 1V IMPRESSION: Intraoperative study. Impression dictated by: Rodrigo Avalos Jr., D.OArtie07/06/2022 12:45 PM Dictation Location: [place] [address] Transcribed By: [facility] 07/06/22 1245 Dictated By: Rodrigo Avalos Jr, DO 07/06/22 1244 Signed By: 07/06/22 1245 Normal [facility] SARS-CoV-2 (COVID-19) RNA AMPARO+probe Ql (Unsp spec) Negative Normal Negative [facility] Comment on above: Order Comment: Healt hcare Worker?: N Result Comment: Testing for SARS-CoV-2 by RT-PCR This test was developed and its performance characteristics determined by [employer]) and validated at the [facility]. This test has not been FDA cleared [...] is terminated or revoked sooner. PERFORMED BY: [facility] [address] [place] [address] PATHOLOGIST PLASTIC CABLEMAKING MACHINE OPERATOR HOLLY RAINES M.D. Performed By: #### C OVID 19 [facility] #### [facility] [address] COVID-19 Positive/NegativeOr dered By: Ralph Hernandez on 07-04-2022 SARS-CoV-2 (COVID-19) N gene AMPARO+probe Ql (Resp) Negative Negative [facility] Comment on above: Testing for SARS-CoV -2 by RT-PCRThis test was developed and its performance characteristics determined by [employer] ([employer]) and validated at the [facility]. This test has not been FDA cleared [...] or revoked sooner. Automated basophil %Ordered By: Ralph Hernandez on 06-23-2022 Basophils/100 WBC (Bld) 0.4 % Normal . [facility] Comment on above: Performed By: #### C BC, [facility] #### [facility] [address] [place], [place] [id number] [facility] Automated basophil countOrde red By: Ralph Hernandez on 06-23-2022 Basophils (Bld) [#/Vol] 0.0 10*3/uL Normal 0.0-0.2 [facility] Comment on above: Result Comment: PERF ORMED BY: [facility] [address] [place] [address] PATHOLOGIST PLASTIC CABLEMAKING MACHINE OPERATOR HOLLY RAINES M.D. Performed By: #### C BC, BMP #### [address] Automated blood monocyte cou ntOrdered By: Ralph Hernandez on 06-23-2022 Monocytes (Bld) [#/Vol] 0.6 10*3/uL Normal 0.0-0.8 [facility] Comment on above: Performed By: #### C BC, BMP #### [address] Automated eosinophil %Ordere d By: Ralph Hernandez on 06-23-2022 Eosinophils/100 WBC (Bld) 0.6 % Normal . [facility] Comment on above: Performed By: #### C BC, BMP #### [address] Automated eosinophil countOr dered By: Ralph Hernandez on 06-23-2022 Eosinophils (Bld) [#/Vol] 0.0 10*3/uL Normal 0.0-0.45 [facility] Comment on above: Performed By: #### C BC, BMP #### [address] Automated monocyte %Ordered By: Ralph Hernandez on 06-23-2022 Monocytes/100 WBC (Bld) 8.4 % Normal . [facility] Comment on above: Performed By: #### C BC, BMP #### [address] Automated neutrophil %Ordere d By: Ralph Hernandez on 06-23-2022 Neutrophils/100 WBC (Bld) 63.6 % Normal . [facility] Comment on above: Performed By: #### C BC, BMP #### [address] Basic Metabolic Panelon 06-11 Estimated GFR ( Twyla > 60 Normal [facility] Comment on above: Result Comment: GFR estimated reference range: According to KDOQI guidelines, <60 ml/min/1.73m2 is sufficient to diagnose a patient with chronic kidney disease. Performed By: #### C BC, BMP #### [facility] [address] [place] [address] Estimated GFR (Non- Am 56 Normal [facility] Comment on above: Performed By: #### C BC, BMP #### [address] Complete Blood Count Auto Di ffon 06-23-2022 Mean Corpuscular HGB Conc 33.2 g/dL Normal 32.5-35.6 [facility] Comment on above: Performed By: #### C BC, BMP #### [address] Complete Blood Count Auto Di ffOrdered By: Ralph Hernandez on 06-23-2022 Nucleated RBC/100 WBC (Bld) [Ratio] 0.0 % Normal 0-0.5 [facility] Comment on above: Performed By: #### C EMMY, BMP #### [address] ECG 12 lead ECGon 06-23-2022 ECG 12 lead ECG [place] [address] Electrocardiograph Report Signed Patient: Tylor Wall MR#: [id number] : 1975 Acct:[id number] Age/Sex: 47 / M ADM Date: 06/23/22 Loc: Room: Type: [facility] Attending Dr: Ralph Hernandez MD Ordering Provider: [...] Signed By Allison Brothers DO 06/235 Normal [facility] Erythrocyte distribution wid th [Ratio] by Automated countOrdered By: Ralph Hernandez on 06-23-2022 Erythrocyte distribution width (RBC) [Ratio] 12.6 % Normal 12.0-14.8 [facility] Comment on above: Performed By: #### C BC, BMP #### [address] Erythrocytes [#/volume] in B lood by Automated countOrdered By: Ralph Hernandez on 06-23-2022 RBC (Bld) [#/Vol] 5.36 10*6/uL Normal 3.90-5.60 [facility] Comment on above: Performed By: #### C EMMY, BMP #### [address] Estimated glomerular filtrat ion rate (GFR) non- AmericanOrdered By: Ralph Hernandez on 06-23-2022 GFR/1.73 sq M.predicted among non-blacks MDRD (S/P/Bld) [Vol rate/Area] 56 mL/Min [facility] Hematocrit [Volume Fraction] of Blood by Automated countOrdered By: Ralph Hernandez on 06-23-2022 Hematocrit (Bld) [Volume fraction] 47.7 % Normal 38.8-50.0 [facility] Comment on above: Performed By: #### C EMMY, BMP #### [address] Hemoglobin [Mass/volume] in BloodOrdered By: Ralph Hernandez on 06-23-2022 Hemoglobin (Bld) [Mass/Vol] 15.9 g/dL Normal 13.0-17.0 [facility] Comment on above: Performed By: #### C BC, BMP #### [address] Leukocytes [#/volume] in Blo od by Automated countOrdered By: Ralph Hernandez on 06-23-2022 WBC (Bld) [#/Vol] 7.3 10*3/uL Normal 4.5-11.0 [facility] Comment on above: Performed By: #### C BC, BMP #### [address] Lymphocytes [#/volume] in Bl ood by Automated countOrdered By: Ralph Hernandez on 06-23-2022 Lymphocytes (Bld) [#/Vol] 2.0 10*3/uL Normal 1.00-4.8 [facility] Comment on above: Performed By: #### C BC, BMP #### [address] Lymphocytes/100 leukocytes i n Blood by Automated countOrdered By: Ralph Hernandez on 06-23-2022 Lymphocytes/100 WBC (Bld) 27.0 % Normal . [facility] Comment on above: Performed By: #### C BC, BMP #### [address] MCH [Entitic mass] by Automa ryan countOrdered By: Ralph Hernandez on 06-23-2022 MCH (RBC) [Entitic mass] 29.6 pg Normal 27.5-35.2 [facility] Comment on above: Performed By: #### C BC, BMP #### [address] MCHC Auto (RBC) [Mass/Vol]Or dered By: Ralph Hernandez on 06-23-2022 MCHC (RBC) [Mass/Vol] 33.2 g/dL 32.5-35.6 [facility] MCV [Entitic volume] by Auto mated countOrdered By: Ralph Hernandez on 06-23-2022 MCV (RBC) [Entitic vol] 89.1 fL Normal 83.5-101 F [facility] Comment on above: Performed By: #### C BC, BMP #### [address] Neutrophils [#/volume] in Bl ood by Automated countOrdered By: Ralph Hernandez on 06-23-2022 Neutrophils (Bld) [#/Vol] 4.6 10*3/uL Normal 1.8-7.7 [facility] Comment on above: Performed By: #### C BC, BMP #### [facility] [address] [place] [address] No Panel InformationOrdered By: Ralph Hernandez on 06-23-2022 Estimated GFR () > 60 mL/Min [facility] Comment on above: GFR estimated refere nce range: According to KDOQI guidelines, <60 ml/min/1.73m2 is sufficient to diagnose a patient with chronic kidney disease. Pharmacy Creatinine Clearance (Chem N/A [facility] Platelet mean volume [Entiti c volume] in Blood by Automated countOrdered By: Ralph Hernandez on 06-23-2022 Platelet mean volume (Bld) [Entitic vol] 8.8 fL Normal 6.6-10.1 [facility] Comment on above: Performed By: #### C BC, BMP #### [facility] [address] [place] [address] Platelets [#/volume] in Bloo d by Automated countOrdered By: Ralph Hernandez on 06-23-2022 Platelets (Bld) [#/Vol] 229 10*3/uL Normal 150-450 [facility] Comment on above: Performed By: #### C EMMY, BMP #### [address] Serum or plasma anion gap de terminationOrdered By: Ralph Hernandez on 06-23-2022 Anion gap [Moles/Vol] 16.0 mmol/L High 6.0-15.0 [facility] Comment on above: Performed By: #### C BC, BMP #### [address] Serum or plasma calcium alissa urement (mass/volume)Ordered By: Ralph Hernandez on 06-23-2022 Calcium [Mass/Vol] 10.1 mg/dL Normal 8.2-10.2 [facility] Comment on above: Result Comment: PERF ORMED BY: [place] [address] PATHOLOGIST PLASTIC CABLEMAKING MACHINE OPERATOR HLOLY RAINES M.D. Performed By: #### C BC, BMP #### [address] Serum or plasma chloride mojgan surement (moles/volume)Ordered By: Ralph Hernandez on 06-23-2022 Chloride [Moles/Vol] 102 mmol/L Normal 95-114 [facility] Comment on above: Performed By: #### C BC, BMP #### [address] Serum or plasma creatinine m easurement with calculation of estimated glomerular filtrOrdered By: Ralph Hernandez on 06-23-2022 Creatinine [Mass/Vol] 1.37 mg/dL High 0.64-1.27 [facility] Comment on above: Performed By: #### C BC, BMP #### [address] Serum or plasma glucose alissa urement (mass/volume)Ordered By: Ralph Hernandez on 06-23-2022 Glucose [Mass/Vol] 107 mg/dL High 70-100 [facility] Comment on above: ADA recommended refe rence rangeRandom Glucose Reference Range is dependent on time and content of last meal. Glucose of more than 200 mg/dL in a nonstressed, ambulatory subject supports the diagnosis of Diabetes Mellitus. Result Comment: Holiday om Glucose Reference Range is dependent on time and content of last meal. Glucose of more than 200 mg/dL in a nonstressed, ambulatory subject supports the diagnosis of Diabetes Mellitus. ADA recommended reference range Performed By: #### C BC, BMP #### [address] Serum or plasma potassium me asurement (moles/volume)Ordered By: Ralph Hernandez on 06-23-2022 Potassium [Moles/Vol] 4.3 mmol/L Normal 3.5-5.1 [facility] Comment on above: Performed By: #### C BC, BMP #### [address] Serum or plasma sodium measu rement (moles/volume)Ordered By: Ralph Hernandez on 06-23-2022 Sodium [Moles/Vol] 139 mmol/L Normal 136-146 [facility] Comment on above: Performed By: #### C BC, BMP #### [facility] [address] Serum or plasma total carbon dioxide measurement (moles/volume)Ordered By: Ralph Hernandez on 06-23-2022 CO2 [Moles/Vol] 25.3 mmol/L Normal 22.0-30.0 [facility] Comment on above: Performed By: #### C EMMY, BMP #### [facility] [address] Serum or plasma urea nitroge n measurement (mass/volume)Ordered By: Ralph Hernandez on 06-23-2022 Urea nitrogen [Mass/Vol] 13 mg/dL Normal 9-23 [facility] Comment on above: Performed By: #### C EMMY, BMP #### [facility] [address] MRI LSPINE WO CONon 10-08-19 MRI [...] eccentric from left paracentral to right posterolateral. Laton is right posterolateral. Asymmetric deformity upon the [...] ALLISON ALSTON Date: 2021-10-08 10:51 Normal [facility] XR CSPINE OBL FLEX_EXTon XR CSPINE OBL [...] PHU STRONG Date: 2021-09-28 14:52 Normal [facility] XR LSPINE MIN 4 VIEWSon 08-11 XR [...] ISABELA GONZALEZ Date: 2021-08-23 11:19 Normal [facility] [employer] Testingon 2020 Result Positive [facility] Other COVID-19 Positive/Negativeon 09-28-2020 COVID-19 Positive/Negative Negative Negative [facility] Comment on above: Testing for SARS-CoV -2 by RT-PCRThis test was developed and its performance characteristics determined by [employer] ([employer]) and validated at the [facility]. This test has not been FDA cleared [...] Otheron 09-28-2020 Coronavirus 2019 PCR Interp N/A [facility] Automated basophil %on 09-16 Basophils/100 WBC (Bld) 0.5 % F [facility] Automated basophil counton 0 09-16-2020 Basophils (Bld) [#/Vol] 0.0 10*3/uL 0.0-0.2 [facility] Automated blood lymphocyte c ount (number/volume)on 09-16-2020 Lymphocytes (Bld) [#/Vol] 2.3 10*3/uL 1.00-4.8 [facility] Automated blood lymphocyte c ount as percentage of total leukocyteson 09-16-2020 Lymphocytes/100 WBC (Bld) 26.8 % [facility] Automated blood monocyte cou nton 09-16-2020 Monocytes (Bld) [#/Vol] 0.8 10*3/uL 0.0-0.8 [facility] Automated blood platelet cou nt (count/volume)on 09-16-2020 Platelets (Bld) [#/Vol] 223 10*3/uL 150-450 [facility] Automated blood platelet mojgan n volume measurementon 09-16-2020 Platelet mean volume (Bld) [Entitic vol] 8.4 fL 6.6-10.1 [facility] Automated eosinophil %on Eosinophils/100 WBC (Bld) 1.2 % [facility] Automated eosinophil counton 09-16-2020 Eosinophils (Bld) [#/Vol] 0.1 10*3/uL 0.0-0.45 [facility] Automated erythrocyte distri bution width ratioon 09-16-2020 Erythrocyte distribution width (RBC) [Ratio] 13.6 % 12.0-14.8 [facility] Automated erythrocyte mean c orpuscular hemoglobin (mass per erythrocyte)on 09-16-2020 MCH (RBC) [Entitic mass] 29.9 pg 27.5-35.2 [facility] Automated erythrocyte mean c orpuscular hemoglobin concentration measurement (mass/volon 09-16-2020 MCHC (RBC) [Mass/Vol] 33.2 g/dL 32.5-35.6 [facility] Automated erythrocyte mean c orpuscular volumeon 09-16-2020 MCV (RBC) [Entitic vol] 90.1 fL 83.5-101 F [facility] Automated monocyte %on 09-16 Monocytes/100 WBC (Bld) 9.6 % F [facility] Automated neutrophil %on Neutrophils/100 WBC (Bld) 61.9 % [facility] Blood erythrocytes automated count (number/volume)on 09-16-2020 RBC (Bld) [#/Vol] 5.30 10*6/uL 3.90-5.60 [facility] Blood hemoglobin measurement (mass/volume)on 09-16-2020 Hemoglobin (Bld) [Mass/Vol] 15.9 g/dL 13.0-17.0 [facility] Blood leukocytes automated c ount (number/volume)on 09-16-2020 WBC (Bld) [#/Vol] 8.6 10*3/uL 4.5-11.0 [facility] Blood neutrophil count by au tomated method (number/volume)on 09-16-2020 Neutrophils (Bld) [#/Vol] 5.3 10*3/uL 1.8-7.7 [facility] Estimated glomerular filtrat ion rate (GFR) non- Americanon 09-16-2020 GFR/1.73 sq M predicted among non-blacks MDRD (S/P/Bld) [Vol rate/Area] mL/min/{1.73_m2} [facility] Hematocrit [Volume Fraction] of Blood by Automated counton 09-16-2020 Hematocrit (Bld) [Volume fraction] 47.8 % 38.8-50.0 [facility] Otheron 09-16-2020 GFR/1.73 sq M.predicted MDRD (S/P/Bld) [Vol rate/Area] mL/min/{1.73_m2} [facility] Comment on above: GFR estimated refere nce range: According to KDOQI guidelines, <60 ml/min/1.73m2 is sufficient to diagnose a patient with chronic kidney disease. Nucleated RBC/100 WBC (Bld) [Ratio] 0.2 % 0-0.5 [facility] Creatinine Clearance (Chem N/A [facility] Serum or plasma calcium alissa urement (mass/volume)on 09-16-2020 Calcium [Mass/Vol] 9.4 mg/dL 8.2-10.2 [facility] Serum or plasma chloride mojgan surement (moles/volume)on 09-16-2020 Chloride [Moles/Vol] 106 mmol/L 95-114 [facility] Serum or plasma creatinine m easurement with calculation of estimated glomerular filtron 09-16-2020 Creatinine [Mass/Vol] 1.03 mg/dL 0.64-1.27 [facility] Serum or plasma glucose alissa urement (mass/volume)on 09-16-2020 Glucose [Mass/Vol] 120 mg/dL 70-100 [facility] Comment on above: ADA recommended refe rence rangeRandom Glucose Reference Range is dependent on time and content of last meal. Glucose of more than 200 mg/dL in a nonstressed, ambulatory subject supports the diagnosis of Diabetes Mellitus. Serum or plasma potassium me asurement (moles/volume)on 09-16-2020 Potassium [Moles/Vol] 4.1 mmol/L 3.5-5.1 [facility] Serum or plasma sodium measu rement (moles/volume)on 09-16-2020 Sodium [Moles/Vol] 139 mmol/L 136-146 [facility] Serum or plasma total carbon dioxide measurement (moles/volume)on 09-16-2020 CO2 [Moles/Vol] 22.6 mmol/L 22.0-30.0 [facility] Serum or plasma urea nitroge n measurement (mass/volume)on 09-16-2020 Urea nitrogen [Mass/Vol] 11 mg/dL 9-23 [facility] Vital Signs Date Time Vital Sign Value Performing Clinician Facility 06-01-2023 18:15-0400 Body height 172.72 cm Sang Sullivan Other [facility] Other 06-01-2023 18:15-0400 Body mass index (BMI) [Ratio] 33.45 kg/m2 Sang Sullivan Other [facility] Other 06-01-2023 18:15-0400 Body temperature 97.8 [degF] Sang Sullivan Other [facility] Other 06-01-2023 18:15-0400 Body weight 99.79 kg Sang Sullivan Other [facility] Other 06-01-2023 18:15-0400 Respiratory rate 20 /min Sang Sullivan Other [facility] Other 06-01-2023 18:15-0400 SaO2% (BldA) [Mass fraction] 9 % Sang Sullivan Other [facility] Other 03-20-2023 13:45-0400 Body height 172.72 cm Marlo Chun Other [facility] Other 03-20-2023 13:45-0400 Body mass index (BMI) [Ratio] 34.97 kg/m2 Marlo Chun Other [facility] Other 03-20-2023 13:45-0400 Body weight 104.33 kg Marlo Chun Other [facility] Other 03-20-2023 13:45-0400 Diastolic blood pressure 86 mm[Hg] Marlo Chun Other [facility] Other 03-20-2023 13:45-0400 SaO2% (BldA) [Mass fraction] 97 % Marlo Chun Other [facility] Other 03-20-2023 13:45-0400 Systolic blood pressure 124 mm[Hg] Marlo Chun Other [facility] Other 02-27-2023 16:00-0400 Body height 172.72 cm Marlo Chun Other [facility] Other 02-27-2023 16:00-0400 Body mass index (BMI) [Ratio] 36 kg/m2 Marlo Chun Other [facility] Other 02-27-2023 16:00-0400 Body weight 107.41 kg Marlo Chun Other [facility] Other 02-27-2023 16:00-0400 Diastolic blood pressure 70 mm[Hg] Marlo Chun Other [facility] Other 02-27-2023 16:00-0400 SaO2% (BldA) [Mass fraction] 96 % Marlo Chun Other [facility] Other 02-27-2023 16:00-0400 Systolic blood pressure 110 mm[Hg] Marlo Chun Other [facility] Other 12-30-2022 11:00-0400 Body height 172.72 cm Ralph Hernandez Other [facility] Other 12-30-2022 11:00-0400 Body mass index (BMI) [Ratio] 35.88 kg/m2 Ralph Hernandez Other [facility] Other 12-30-2022 11:00-0400 Body weight 107.05 kg Ralph Hernandez Other [facility] Other 12-30-2022 11:00-0400 Diastolic blood pressure 84 mm[Hg] Ralph Hernandez Other [facility] Other 12-30-2022 11:00-0400 Systolic blood pressure 118 mm[Hg] Ralph Hernandez Other [facility] Other 09-16-2022 09:40-0500 Body height 172.72 cm Ralph Hernandez Other [facility] Other 09-16-2022 09:40-0500 Body mass index (BMI) [Ratio] 34.97 kg/m2 Ralph Hernandez Other [facility] Other 09-16-2022 09:40-0500 Body weight 104.33 kg Ralph Hernandez Other [facility] Other 08-02-2022 12:00-0500 Body height 172.72 cm Ralph Hernandez Other [facility] Other 08-02-2022 12:00-0500 Body mass index (BMI) [Ratio] 34.97 kg/m2 Ralph Hernandez Other [facility] Other 08-02-2022 12:00-0500 Body weight 104.33 kg Ralph Hernandez Other [facility] Other 07-06-2022 11:30-0400 Diastolic blood pressure 80 mm[Hg] MD Lola Umana Work Phone: [facility] 07-06-2022 11:30-0400 Heart rate 75 /min MD Lola Umana Work Phone: [facility] 07-06-2022 11:30-0400 Respiratory rate 16 /min MD Lola Umana Work Phone: [facility] 07-06-2022 11:30-0400 SaO2% (BldA) [Mass fraction] 92 % MD Lola Umana Work Phone: [facility] 07-06-2022 11:30-0400 Systolic blood pressure 123 mm[Hg] MD Lola Umana Work Phone: [facility] 07-06-2022 09:54-0400 Body temperature 98.1 [degF] MD Lola Umana Work Phone: [facility] 07-06-2022 09:54-0400 Inhaled oxygen flow rate 6 L/min MD Lola Umana Work Phone: [facility] 07-06-2022 08:01-0400 Body height 172.72 cm MD Lola Umana Work Phone: [facility] 07-06-2022 08:01-0400 Body mass index (BMI) [Ratio] 34.5 kg/m2 MD Lola Umana Work Phone: [facility] 07-06-2022 08:01-0400 Body weight 103 kg MD Lola Umana Work Phone: [facility] 06-27-2022 10:30-0400 Body height 172.72 cm Marlo Adiel Other [facility] Other 06-27-2022 10:30-0400 Body mass index (BMI) [Ratio] 35.06 kg/m2 Marlo Adiel Other [facility] Other 06-27-2022 10:30-0400 Body weight 104.6 kg Marlo Adiel Other [facility] Other 06-27-2022 10:30-0400 Diastolic blood pressure 80 mm[Hg] Marlo Chun Other [facility] Other 06-27-2022 10:30-0400 SaO2% (BldA) [Mass fraction] 97 % Marlo Chun Other [facility] Other 06-27-2022 10:30-0400 Systolic blood pressure 140 mm[Hg] Marlo Adiel Other [facility] Other 06-10-2022 09:20-0400 Body height 172.72 cm Ralph Hernandez Other [facility] Other 06-10-2022 09:20-0400 Body mass index (BMI) [Ratio] 34.36 kg/m2 Ralph Hernandez Other [facility] Other 06-10-2022 09:20-0400 Body weight 102.51 kg Ralph Hernandez Other [facility] Other 05-31-2022 15:30-0400 Body height 172.72 cm Sofya Espinoza Other [facility] Other 05-31-2022 15:30-0400 Body mass index (BMI) [Ratio] 34.42 kg/m2 Sofya Espinoza Other [facility] Other 05-31-2022 15:30-0400 Body weight 102.7 kg Sofya Espinoza Other [facility] Other 05-31-2022 15:30-0400 Diastolic blood pressure 64 mm[Hg] Sofya Espinoza Other [facility] Other 05-31-2022 15:30-0400 Respiratory rate 18 /min Sofya Espinoza Other [facility] Other 05-31-2022 15:30-0400 SaO2% (BldA) [Mass fraction] 98 % Sofya Espinoza Other [facility] Other 05-31-2022 15:30-0400 Systolic blood pressure 108 mm[Hg] Sofya Espinoza Other [facility] Other 03-03-2022 16:00-0400 Body height 172.72 cm Marlo Chun Other [facility] Other 03-03-2022 16:00-0400 Body mass index (BMI) [Ratio] 35.09 kg/m2 Marlo Chun Other [facility] Other 03-03-2022 16:00-0400 Body weight 104.69 kg Marlo Chun Other [facility] Other 03-03-2022 16:00-0400 Diastolic blood pressure 70 mm[Hg] Marlo Chun Other [facility] Other 03-03-2022 16:00-0400 SaO2% (BldA) [Mass fraction] 97 % Marlo Chun Other [facility] Other 03-03-2022 16:00-0400 Systolic blood pressure 122 mm[Hg] Marlo Chun Other [facility] Other 01-20-2022 15:30-0400 Body height 172.72 cm Marlo Chun Other [facility] Other 01-20-2022 15:30-0400 Body mass index (BMI) [Ratio] 34.63 kg/m2 Marlo Chun Other [facility] Other 01-20-2022 15:30-0400 Body weight 103.33 kg Marlo Chun Other [facility] Other 01-20-2022 15:30-0400 Diastolic blood pressure 80 mm[Hg] Marlo Chun Other [facility] Other 01-20-2022 15:30-0400 SaO2% (BldA) [Mass fraction] 96 % Marlo Chun Other [facility] Other 01-20-2022 15:30-0400 Systolic blood pressure 110 mm[Hg] Marlo Chun Other [facility] Other 12-23-2021 15:30-0400 Body height 172.72 cm Marlo Chun Other [facility] Other 12-23-2021 15:30-0400 Body mass index (BMI) [Ratio] 34.69 kg/m2 Marlo Chun Other [facility] Other 12-23-2021 15:30-0400 Body weight 103.51 kg Marlo Chun Other [facility] Other 12-23-2021 15:30-0400 Diastolic blood pressure 84 mm[Hg] Marlo Chun Other [facility] Other 12-23-2021 15:30-0400 SaO2% (BldA) [Mass fraction] 97 % Marlo Chun Other [facility] Other 12-23-2021 15:30-0400 Systolic blood pressure 122 mm[Hg] Marlo Chun Other [facility] Other 11-22-2021 09:30-0400 Body height 172.72 cm Dylan Elscira Other [facility] Other 11-22-2021 09:30-0400 Body mass index (BMI) [Ratio] 34.21 kg/m2 Dylan Nieto Other [facility] Other 11-22-2021 09:30-0400 Body weight 102.06 kg Dylan Nieto Other [facility] Other 09-29-2021 10:00-0500 Body height 172.72 cm Dylan Nieto Other [facility] Other 09-29-2021 10:00-0500 Body mass index (BMI) [Ratio] 34.21 kg/m2 Dylan Nieto Other [facility] Other 09-29-2021 10:00-0500 Body weight 102.06 kg Dylan Nieto Other [facility] Other 07-27-2021 13:30-0500 Body height 172.72 cm Jeana Lauren Other [facility] Other 07-27-2021 13:30-0500 Body mass index (BMI) [Ratio] 34.21 kg/m2 Jeana Lauren Other [facility] Other 07-27-2021 13:30-0500 Body temperature 98 [degF] Jeana Lauren Other [facility] Other 07-27-2021 13:30-0500 Body weight 102.06 kg Jeana Lauren Other [facility] Other 07-27-2021 13:30-0500 SaO2% (BldA) [Mass fraction] 98 % Jeana Lauren Other [facility] Other Encounters Encounter Date Encounter Type Care Provider Facility Start: 05-29-2024 End: 05-29-2024 ambulatory Alexis ALCANTARA Facility:[facility] Start: 05-06-2024 ambulatory Alexis ALCANTARA Facility:[facility] Start: 06-01-2023 End: 06-01-2023 ambulatory Sang Sullivan Other [facility] Other Start: 06-01-2023 Office outpatient visit 15 minutes Sang Sullivan [facility] Start: 03-20-2023 End: 03-20-2023 ambulatory Marlo Chun Other [facility] Other Start: 03-20-2023 Office outpatient visit 25 minutes Marlo Chun [facility] Start: 03-07-2023 (PROC) PROCEDURE Marlo Santizo [facility] Start: 03-07-2023 End: 03-07-2023 ambulatory Marlo Chun [facility] Other Start: 02-28-2023 End: 02-28-2023 ambulatory Marlo Chun Other [facility] Other Start: 02-28-2023 Telephone encounter Marlo Chun [facility] Start: 02-27-2023 End: 02-27-2023 ambulatory Marlo Chun Other [facility] Other Start: 02-27-2023 Office outpatient visit 25 minutes Marlo Chun [facility] Start: 12-30-2022 End: 12-30-2022 ambulatory Ralph Hernandez Other [facility] Other Start: 12-30-2022 Office outpatient visit 15 minutes Ralph Hernandez [facility] Start: 09-16-2022 End: 09-16-2022 ambulatory Ralph Hernandez Other [facility] Other Start: 09-16-2022 Postop follow up vis it related to original px Ralph Hernandez [facility] Start: 08-02-2022 End: 08-02-2022 ambulatory Ralph Hernandez Other [facility] Other Start: 08-02-2022 Postop follow up vis it related to original px Ralph Hernandez [facility] Start: 07-06-2022 End: 07-06-2022 Admission to same day surgery center MD Lola Umana Work Phone: [facility] [place] Start: 07-06-2022 End: 07-06-2022 ambulatory Lola Umana Facility:[facility] Start: 07-06-2022 End: 07-06-2022 ambulatory MD Lola Umana Work Phone: [facility] Work Phone: Start: 07-04-2022 End: 07-04-2022 ambulatory Ralph Hernandez Facility:[facility] Start: 07-04-2022 End: 07-04-2022 ambulatory MD Lola Umana Work Phone: [facility] Work Phone: Start: 07-04-2022 End: 07-04-2022 Patient encounter procedure MD Lola Umana Work Phone: [facility] Start: 06-28-2022 End: 06-28-2022 ambulatory Ralph Hernandez Other [facility] Other Start: 06-28-2022 Telephone encounter Ralph Hernandez [facility] Start: 06-27-2022 End: 06-27-2022 ambulatory Marlo Chun Other [facility] Other Start: 06-27-2022 Office outpatient visit 25 minutes Marlo Chun [facility] Start: 06-23-2022 End: 06-23-2022 ambulatory Ralph Hernandez Facility:[facility] Start: 06-23-2022 End: 06-23-2022 ambulatory MD Lola Umana Work Phone: [facility] Work Phone: Start: 06-23-2022 End: 06-23-2022 Patient encounter procedure MD Lola Umana Work Phone: [facility] Start: 06-10-2022 End: 06-10-2022 ambulatory Ralph Hernandez Other [facility] Other Start: 06-10-2022 Office outpatient visit 40 minutes Ralph Hernandez [facility] Start: 05-31-2022 End: 05-31-2022 ambulatory Sofya Espinoza Other [facility] Other Start: 05-31-2022 Office outpatient visit 15 minutes Sofya Espinoza [facility] Start: 04-25-2022 End: 04-26-[address] LOLA UMANA Facility:[facility] Start: 03-03-2022 End: 03-03-2022 ambulatory Marlo Chun Other [facility] Other Start: 03-03-2022 Office outpatient visit 15 minutes Marlo Adiel [facility] Start: 02-24-2022 (Procedure) Short Marlo Chun [facility] Start: 02-24-2022 End: 02-24-2022 ambulatory Marlo Chun Other [facility] Other Start: 02-10-2022 End: 02-10-2022 ambulatory Marlo Chun Other [facility] Other Start: 02-10-2022 Telephone encounter Marlo Chun [facility] Start: 01-20-2022 End: 01-20-2022 ambulatory Marlo Chun Other [facility] Other Start: 01-20-2022 Office outpatient visit 25 minutes Marlo Adiel [facility] Start: 01-06-2022 (Procedure) Carlie Chun [facility] Start: 01-06-2022 End: 01-06-2022 ambulatory Marlo Chun Other [facility] Other Start: 12-23-2021 End: 12-23-2021 ambulatory Marlojing Chun Other [facility] Other Start: 12-23-2021 Office outpatient visit 15 minutes Marlo Adiel [facility] Start: 12-16-2021 (Procedure) Short Marlo Chun [facility] Start: 12-16-2021 End: 12-16-2021 ambulatory Marlo Chun Other [facility] Other Start: 12-06-2021 End: 12-06-2021 ambulatory Marlo Chun Other [facility] Other Start: 12-06-2021 Telephone encounter Marlo Adiel [facility] Start: 11-22-2021 End: 11-22-2021 ambulatory Dylan Nieto Other [facility] Other Start: 11-22-2021 Office outpatient visit 15 minutes Dylan Nieto [facility] Start: 10-08-2021 End: 10-09-[address] DOCTOR ACUÑA Facility:[facility] Start: 10-06-2021 End: 10-06-2021 ambulatory Dylan Nieto Other [facility] Other Start: 10-06-2021 Telephone encounter Dylan Short [facility] Start: 09-29-2021 End: 09-29-2021 ambulatory Dylan Nieto Other [facility] Other Start: 09-29-2021 Office outpatient visit 15 minutes Dylan Nieto [facility] [place] Start: 09-28-2021 End: 09-29-[address] DOCTOR ACUÑA Facility:[facility] Start: 09-12-2021 End: 10-09-[address] LOLA UMANA Facility:[facility] Start: 09-01-2021 End: 09-10-[address] LOLA UMANA Facility:[facility] Start: 08-23-2021 End: 08-24-[address] LOLA UMANA Facility:[facility] Start: 07-27-2021 End: 07-27-2021 ambulatory Jeana Lauren Other [facility] Other Start: 07-27-2021 Office outpatient visit 15 minutes Jeana Lauren [facility] [place] Start: 09-28-2020 End: 09-28-2020 Patient encounter procedure Lola Umana -Pre-Surgical Testing Start: 09-16-2020 End: 09-16-2020 Patient encounter procedure Lola Umana -Pre-Surgical Testing Start: 09-02-2020 End: 09-02-2020 Patient encounter procedure Lola Umana -XRay [facility] Procedures Date Procedure Procedure Detail Performing Clinician Start: 07-06-2022 Excision of lumbar intervertebral disc MD Lola Umana Work Phone: Start: 09-02-2020 Radiography of cervi sergio spine Lola Umana Plan of Treatment Date Care Activity Detail Author Start: 07-06-2022 [facility] Start: 07-06-2022 [facility] Start: 07-06-2022 X-ray of lumbar spin e, single view XR lumbar spine 1V [facility] Start: 07-06-2022 XR Lumbar spine Sing le view [facility] Patient referral [facility] Work Phone: Immunizations Immunization Date Immunization Notes Care Provider Fa marline 12-27-2020 COVID-19 mRNA Comiramber (Pfizer) MD Lola Umana Work Phone: [facility] 12-05-2020 COVID-19 mRNA Comiramber (Pfizer) MD Lola Umana Work Phone: [facility] Payers Date Payer Category Payer Self-pay [id number] 1975 Unknown [id number] 2.16.84 [id number] 1975 Unknown [id number] 1977 Unknown [id number] .16.84 [id number] 1977 Unknown [id number] .16.84 [id number] 1977 Unknown [id number] .16.84 [id number] 1977 Unknown [id number] 2.16.84 [id number] 1977 Unknown [id number] 2.16.8 [id number] 1957 Blue Cross Blue [facility] GTFAN [id number] 1957 Unknown [id number] Unknown Self Pay [id number] Unknown [id number] 2.16.8 [id number] Unknown [id number] 2.16.8 [id number] Unknown [id number] 2.16.8 [id number] Social History Date Type Detail Facility Start: 09-16-2020 Tobacco smoking status [facility] Never smoked tobacco (finding) [facility] Start: 1975 Sex Assigned At Male F [facility] Sex Assigned At Sex Assigned At Bir th [facility] Other Start: 06-23-2022 End: 07-06-2022 Tobacco smoking status [facility] Smoker (finding) [facility] Medical Equipment Procedure Code Equipment Code Equipment Origin al Text Equipment Identifier Dates Cervical total d isc replacement prosthesis, sterile ([id number] [facility] Start: 09-29-2020 Goals Date [...] mRNA [id number] vax 12/05/2020 Recorded 2024-05-22: [id number] [facility] Comment on above: Result Comment: Elec tronically [...] Pt understood and agreed to treatment plan. [facility] Other 07-10-2023 Evaluation note* Encounter Date Diagnosis [...] procedure. Mar, Sacroiliitis (ICD-10 - M46.1) Stable. [facility] Other 06-19-2023 Evaluation note* Encounter Date Diagnosis [...] this time to further evaluate his pain [facility] Other 04-21-2023 Evaluation note* Encounter Date Diagnosis [...] physical therapy and then ordering an MRI. [facility] Other 01-06-2023 Evaluation note* Encounter Date Diagnosis [...] Sep, Lumbosacral disc herniation (ICD-10 - M51.27) [facility] Other 11-22-2022 Evaluation note* Encounter Date Diagnosis Assessment Notes Treatment Notes Treatment Clinical Notes Jul, Lumbosacral disc herniation (ICD-10 - M51.27) 1 month postop the patient is doing well. He will go back to work on a limited duty basis on August 18..We will see him again in 2 months for follow-up. He is aware of his restriction [facility] Other 10-26-2022 History general Narrative - Reported* Type Description Date Surgical History vasectomy Surgical History Artificial disc C6-7 Surgical History L5-S1 discectomy with Dr Hernandez 07/06/2022 Hospitalization History See Above [facility] Other 10-17-2022 Evaluation note* Encounter Date Diagnosis [...] - G89.29) Continue taking medications as prescribed. [facility] Other 09-30-2022 Evaluation note* Encounter Date Diagnosis [...] would like to proceed with surgical intervention. [facility] Other 09-20-2022 Evaluation note* Encounter Date Diagnosis [...] to 300mg TID. Continue Celebrex as prescribed [facility] Other 06-23-2022 Evaluation note* Encounter Date Diagnosis [...] call the office if his symptoms return [facility] Other 05-12-2022 Evaluation note* Encounter Date Diagnosis [...] call the office if his symptoms return [facility] Other 04-14-2022 Evaluation note* Encounter Date Diagnosis [...] - M51.36) Continue with current treatment plan [facility] Other 2022 Evaluation note* Encounter Date Diagnosis [...] Nov, Degenerative lumbar disc (ICD-10 - M51.36) [facility] Other 01-19-2022 Evaluation note* Encounter Date Diagnosis [...] a year with repeat set of x-rays. [facility] Other 11-16-2021 Evaluation note* Encounter Date Diagnosis [...] Patient care instructions given in writting by [facility] document. [facility] Other Evaluation noteNo InformationNort [employer] Other evaluation noteNo assessment information available [facility] Work Phone: History general Narrative - Reported* Type Description Date Surgical History vasectomy Surgical History Artificial disc C6-7 Hospitalization History See Above [facility] Other Hospital Discharge instructions Additional Instructions DISCHARGE [...] appointment to see your physician in two weeks.[facility] Work Phone: Advance Directives No Advanced Directives [...] Lumbosacral disc her niation (M51.27) Referral Organization [facility] urosurgery Referring Provider First Name Dylan Referring Provider Last Name Gerson Referring Provider Specialty Neurosurger y Referred Organization [facility] Referred Provider Vikas Negrete Referred Address [address] [place],[address] Referred Provider Specialty Pain Medicin e Referral [...] Provider Visityear f/u Artificial disc XR @ [place], Patient also has about a 2 to [...] DATE CREATED AUTHOR AUTHOR'S ORGANIZ ATION 10/15/2022 [facility] DATE CREATED AUTHOR AUTHOR'S ORGANIZ ATION 06/01/2024 [facility] Care Teams (unrecognized sec tion and [...] BE BASED ON THE PRIMARY CLINICAL RECORDS. [facility]. provides no warranty or guarantee of the accuracy or completeness of information in this document.
[2024-07-10 06:25] VITALS: BP 131/80; PULSE 69; TEMP 36.4; O2SAT 97; BMI 36.2
[2024-07-10] MEDS: 0.9 % SODIUM CHLORIDE 500 ML 50 ML IV (06:52)
[2024-07-10 07:44] VITALS: BP 94/58; PULSE 71; TEMP 36.5; O2SAT 99
[2024-07-10 07:59] VITALS: BP 100/63; PULSE 75; TEMP 36.4; O2SAT 97
[2024-07-10 08:14] VITALS: BP 123/86; PULSE 66; TEMP 36.4; O2SAT 97
== END 2024-07-10 08:14 | disposition home or self-care (01) ==
PROVIDERS: PCP Family Medicine; Visit Provider Surgery
PROC: (CPT 00812; principal; 2024-07-10 07:30)
DX: Z12.11 Encounter for screening for malignant neoplasm of colon (principal); Z80.0 Family history of malignant neoplasm of digestive organs; G47.33 Obstructive sleep apnea (adult) (pediatric)
CPT/HCPCS: 00812; 45378; J2250; J2704

== ENCOUNTER 2025-03-27 08:58 | Outpatient (OUT) | payer BC, SELFPAY ==
--- OUTSIDE RECORDS SUMMARY | 2025-03-27 09:21 | XMS_ITS | CCD ---
Author Organization [facility] CliniSynd Care Team Providers Care Admissions Consultant Name Role Phone Lola Umana Primary Care Provider Dylan Nieto Attending Provider AdielMarlo Unavailable Jeana Lauren Unavailable Dylan Nieto Unavailable ERWIN, DR LOLA Levine Admitting Unavailable UMANA, DR LOLA Levine Attending Unavailable UMANA, DR LOLA Levine Consulting Unavailable UMANA, DR LOLA Levine Primary Care Unavailable ANJEL, DR ISABELA Alford Consulting Unavailable MISC, DR GUPTA Attending Unavailable MISC, DR GUPTA Admitting Unavailable SLAYTON, DR PHU Patrick Consulting Unavailable UMANA, DR [...] Unavailable UMANA, DR LOLA Levine Consulting Unavailable Alexis, Sofya Unavailable Ralph Hernandez Unavailable MD Lola Umana Primary Care Provider [phone] MD Ralph Hernandez Attending Provider Lola Umana Primary Care Unavailable Ralph Hernandez Admitting Unavailable Ralph Hernandez Attending Unavailable Ralph Hernandez Attending Unavailable Ralph Hernandez Admitting Unavailable Lola Umana Primary Care Unavailable Ralph Hernandez Attending Unavailable Ralph Hernandez Admitting Unavailable Lola Umana Primary Care Unavailable Sang Sullivan Unavailable Alexis ALCANTARA Attending Unavailable Judd Tanner Referring Unavailable Alexis ALCANTARA Attending Unavailable Bonifacio Morrison DO Unavailable Peter Fagan MD Primary Care Provider BONIFACIO MORRISON Attending Unavailable Judd Tanner Primary Care Physician Lola Umana MD Primary Care Provider [phone] Adrian Guillen APRN Attending Provider [phone] Unavailable Unavailable Unavailable Allergies Allergy Classification Reported Allergen(s) Allergy Type Date of Onset Reaction(s) Facility (20 sources) Michael Carroll Propensity to adverse reactions rash [facility] Other (1 source) No Known Medication Allergies; Translations: [No Known Medication Allergies] Propensity to adverse reactions (disorder) [facility] Repository Medications Current Medications Medication Drug Class(es) Dates Sig (Normalized) Sig (Original) acetaminophen 500 mg oral tablet (4 sources) Start: 06-23-2022 take 2 tablets by mouth every six hours as needed for pain Acetaminophen (Tylenol Extra Strength) 500 mg Tablet Active 1000 MG PO Q6H as needed for Pain June 23, 2022 12:00am Complies with drug therapy Centrum Men (20 sources) Centrum Men Acti ve diazePAM 10 mg oral tablet (5 sources) Benzodiazepine Start: 10-06-2021 take 1 tablet by mouth once as needed Valium 10 MG 1 tablet as needed Orally once prior to mri for 1 days Sep, Active Start: 09-29-2020 End: 06-23-2022 take 1 tablet by mouth four times daily as needed for muscle spasms Diazepam 5 mg Tablet Discontinued 5 MG PO Four times daily as needed for Muscle Spasm 30 September 29, 2020 1:00am June 23, 2022 4:10pm glucosamine 500 mg oral tablet (1 source) take 1 capsule by mouth three times daily Glucosamine 500 MG 1 capsule with a meal Orally Three times a day Active Multivitamin preparation (3 sources) Start: 06-23-2022 take 1 tablet by mouth once daily Multivitamin Active 1 TAB PO Daily June 23, 2022 12:00am Multivitamin Tablet (1 source) Start: 06-23-2022 take 1 tablet by mouth once daily Multivitamin Tablet Active 1 TAB PO Daily June 23, 2022 12:00am Complies with drug therapy predniSONE 10 mg oral tablet (9 sources) Start: 03-24-2025 Prednisone 10 mg tablet Active 10 MG PO As Directed 39 March 24, 2025 12:00am see taper instructions. 60mg daily for three days, 40mg daily for three days, 20mg daily for three days, 10mg daily for three days. Complies with drug therapy Start: 06-01-2023 prednisone 10 mg 4 tablets x2 days, then 3 x2 days, 2 x2 days, 1 x2 days Orally as directed for 8 May, Active Start: 12-30-2022 predniSONE 10 MG 1 tablet T.I.D x 3days, 1 tablet B.I.D x 3 days, 1 tablet qd X3 days Orally as directed for 9 days Dec, Not-Taking Start: 07-06-2022 End: 03-24-2025 Prednisone 10 mg tablets,dos e pack Discontinued 1 dose pk PO per package directions July 06, 2022 12:00am March 24, 2025 6:19pm take 4 tabs for 3 days then take 3 tabs for 3 days then take 2 tabs for 3 days then take 1 tab for 3 days Start: 07-06-2022 Prednisone Act prashant 1 dose [...] / HYDROcodone bitartrate 5 mg oral tablet (4 sources) Opioid Agonist Start: 09-29-2020 End: 06-23-2022 take 1 tablet by mouth every six hours as needed for pain Hydrocodone-Acetamin ophen 5-325 mg Tablet Discontinued 1 - 2 TAB PO Q6H as needed for pain 70 14 September 29, 2020 June 23, 2022 4:10pm ascorbic acid 100 mg oral tablet (6 sources) Vitamin C Start: 09-16-2020 End: 06-23-2022 take 1 tablet by mouth once daily Ascorbic Acid (Vitamin C) (Vitamin C) 100 mg Tablet Discontinued 100 MG PO Daily September 16, 2020 1:00am June 23, 2022 4:09pm celecoxib 200 mg oral capsule (16 sources) Nonsteroidal Anti-inflammatory Drug Start: 05-02-2022 End: 03-24-2025 take 1 capsule by mouth once daily Celecoxib 200 mg capsule Discontinued 200 MG PO Daily June 23, 2022 12:00am March 24, 2025 6:18pm cephalexin 500 mg oral capsule (2 sources) Cephalosporin Antibacterial Start: 07-06-2022 End: 03-24-2025 take 1 capsule by mouth three times daily Cephalexin 500 mg capsule Discontinued 500 MG PO Three times daily July 06, 2022 12:00am March 24, 2025 6:19pm cholecalciferol 0.025 mg oral capsule (6 sources) Vitamin D Start: 09-16-2020 End: 06-23-2022 take 1 capsule by mouth once daily Cholecalciferol (Vitamin D3) (Vitamin D3) 25 mcg (1,000 unit) Capsule Discontinued 25 MCG PO Daily September 16, 2020 1:00am June 23, 2022 4:09pm cyclobenzaprine hydrochloride 10 mg oral tablet (8 sources) Muscle Relaxant Start: 07-06-2022 End: 03-24-2025 take 1 tablet by mouth three times daily as needed for muscle spasms Cyclobenzaprine 10 mg tablet Discontinued 10 MG PO Three times daily as needed for back spasms July 06, 2022 12:00am March 24, 2025 6:18pm Start: 09-16-2020 End: 06-23-2022 take 1 tablet by mouth three times daily as needed for pain Cyclobenzaprine 10 mg tablet Discontinued 10 MG PO Three times daily as needed for neck pain September 16, 2020 1:00am June 23, 2022 4:10pm gabapentin 300 mg oral capsule (16 sources) Anti-epileptic Agent Start: 05-02-2022 End: 03-24-2025 take 1 capsule by mouth three times daily Gabapentin 300 mg capsule Discontinued 300 MG PO Three times daily June 23, 2022 12:00am March 24, 2025 6:18pm oxyCODONE hydrochloride 5 mg oral tablet (2 sources) Opioid Agonist Start: 07-06-2022 End: 03-24-2025 take 5-10 mg by mouth every six hours as needed for pain Oxycodone 5 mg tablet Discontinued 5 - 10 MG PO Q6H as needed for Pain 40 8 July 06, 2022 March 24, 2025 6:19pm Problems Active Problems Problem Classification Problem Date Documented Date Episodic/Chronic Allergic reactions (1 source) Allergic contact dermatitis due to plants, except food Episodic Other lower respiratory disease (2 sources) Snoring; Translations: [Snoring] 08-07-2024 Episodic Other nervous system disorders (20 sources) Chronic pain; Translations: [Other chronic pain] Chronic Other nervous system disorders (7 sources) Other chronic pain Onset: 12-23-2021 Resolved: 03-03-2022 Chronic Other nervous system disorders (2 sources) Circadian rhythm sleep disorder of shift work type; Translations: [Circadian rhythm sleep disorder, shift work type] 08-07-2024 Chronic Other nutritional; endocrine; and metabolic disorders (1 source) Body mass index 30+ - obesity 05-29-2024 Chronic Other nutritional; endocrine; and metabolic disorders (1 source) Obesity caused by energy imbalance 05-22-2024 Chronic Other screening for suspected conditions (not mental disorders or infectious disease) (1 source) Screening for malignant neoplasm of colon done; Translations: [Encounter for screening for malignant neoplasm of colon] Onset: 05-29-2024 Episodic Other upper respiratory disease (20 sources) Seasonal allergic rhinitis; Translations: [Other seasonal allergic rhinitis] Chronic Residual codes; unclassified (4 sources) Obstructive sleep apnea (adult) (pediatric); Translations: [OBSTRUCTIVE SLEEP APNEA] Onset: 04-25-2022 Chronic Residual codes; unclassified (2 sources) Obstructive sleep apnea syndrome; Translations: [Obstructive sleep apnea (adult) (pediatric)] 08-07-2024 Chronic Residual codes; unclassified (2 sources) Hypersomnia; Translations: [Hypersomnia, unspecified] 08-07-2024 Chronic Residual codes; unclassified (1 source) Sleep apnea 05-22-2024 Chronic Spondylosis; intervertebral disc disorders; other back problems (20 sources) Solitary sacroiliitis; Translations: [Sacroiliitis, not elsewhere classified] Onset: 10-04-2021 Resolved: 03-03-2022 Chronic Spondylosis; intervertebral disc disorders; other back problems (20 sources) Cervical disc disorder with radiculopathy; Translations: [Cervical disc disorder with radiculopathy, unspecified cervical region] Onset: 08-23-2021 Resolved: 03-03-2022 Episodic Comment on above: Problem List clean-u p per request of Phys. EHR Cmte Unclassified (1 source) Encounter for preprocedural laboratory examination; Translations: [Encounter for preprocedural laboratory examination] Onset: 07-04-2022 Unclassified (1 source) Patient encounter status 05-29-2024 Past or Other Problems Problem Classification Problem Date Documented Da te Episodic/Chronic Immunizations and screening for infectious disease (1 source) Contact with and (suspected) exposure to other viral communicable diseases Onset: 07-27-2021 Resolved: 07-27-2021 Episodic Viral infection (1 source) COVID-19 Onset: 07-27-2021 Resolved: 07-27-2021 Results Test Name Value Interpretation Reference Range Facility Reminderson 07-11-2024 Reminders Reminders From: Hayley Lyman LPN To: GSN - Clinical; Sent: 07/11/2024 13:27:00 EDT Show up: 06/10/2034 07:00:00 EDT Subject: colonoscopy recall Due Date/Time: 07/10/2034 07:00:00 EDT Reminder/Recall Patient due for screening colonoscopy 07/10/2034. Normal [facility] Ambulatory Visit Summaryon 0 05-29-2024 Ambulatory Visit Summary Ambulatory Visit Summary MAETYLOR Jered :1975 Visit Date:05/29/2024 Ambulatory Visit Instructions Your [...] you for choosing us for your care. [facility] Dannie 07-06-2022 L - -------- Specimen: [id number] Received: 07/06/22 Status: NASREEN Hilldread Num: [id number] Spec Type: Surgical Subm Dr: Ralph Hernandez MD Tissues: A Disc - Intervertebral/Lumbar /Cervical (LUMBAR DISC) Procedures: Radha Alas/Saira L3 -------- Age/ Patient Sex Location Account Attending Physician -------- Tylor Rahman 47/M [place] [id number] Ralph Hernandez MD -------- SPEC NUM: [id number] RECD: 07/06/22 STATUS: NASREEN HILLDread NUM: [id number] ERIC: 07/06/[address] [facility] [address]: Ralph Hernandez MD ENTERED: 07/06/22 [facility] DR: SPEC TYPE: Surgical DEPT: S ORDERED: HE Stain, Gross/Micro L3 ORDERED: HE Stain, Gross/Micro L3 Pathological Diagnosis Lumbar disc, discectomy: - Benign degenerated cartilage tissue. Clinical Information Left L5-S1 disc herniation Gross Description Received in formalin labeled with the patient's name, number and lumbar disc is a 4.5 x 2.3 x 1.2 cm aggregate of coon-pink fibrocartilaginous tissue. Molder Trimmer sections are submitted in one cassette labeled A1. Microscopic Description One glass slide with H E stained material has been examined. The microscopic findings support the above pathologic diagnosis. CPT Codes 64046 -------- -------- Specimen: [id number] Received: 07/06/22 Status: NASREEN Brenda Num: [id number] Spec Type: Surgical Subm Dr: Ralph Hernandez MD Tissues: A Disc - Intervertebral/Lumbar /Cervical (LUMBAR DISC) Procedures: HE Stain, Gross/Micro L3 -------- Patient: Tylor Rahman [id number] (Continued) -------- Signed (signature on file) Kylie Echeverria MD 07/07/[address] [facility] XR lumbar spine 1Von 022 XR lumbar spine 1V [facility] [place] [address] XRay Report Signed Patient: Tylor Rahman MR#: [id number] : 1975 Acct:[id number] Age/Sex: 47 / M ADM Date: 07/06/22 Loc: [place] Room: Type: [facility] Attending Dr: Ralph Hernandez MD Copies to: Ralph Hernandez MD Ordering Provider: Ralph Hernandez MD Date of Service: 07/06/22 XR/XR lumbar spine 1V: . Intraoperative study. Reason for exam: Lumbar discectomy. FINDINGS: One image was obtained intraoperatively. 30 seconds of fluoroscopic time is utilized. XR/XR lumbar spine 1V IMPRESSION: Intraoperative study. Impression dictated by: Rodrigo Avalos Jr., D.OArtie07/06/2022 12:45 PM Dictation Location: RADIO-PC-09 Transcribed By: BRITTANIE 07/06/221244 Dictated By: Rodrigo Avalos Jr, DO 07/06/22 1244 Signed By: 07/06/[address] [facility] COVID[place]19 [facility] [place] SARS-CoV-2 (COVID-19) RNA AMPARO+probe Ql (Unsp spec) Negative Normal Negative [facility] Comment on above: Order Comment: Healt hcare Worker?: N Result Comment: Testing for SARS-CoV-2 by RT-PCR This test was developed and its performance characteristics determined by [employer] ([employer]) and validated at the [facility]. This test has not been FDA [...] is terminated or revoked sooner. PERFORMED BY: [place] [address] PATHOLOGIST NITRO WORKER HOLLY RAINES M.D. Performed By: #### C OVID 19 [facility] #### [address] COVID-19 Positive/NegativeOr dered By: Ralph Hernandez on 07-04-2022 SARS-CoV-2 (COVID-19) N gene AMPARO+probe Ql (Resp) Negative Negative [facility] Comment on above: Testing for SARS-CoV -2 by RT-PCRThis test was developed and its performance characteristics determined by [employer] ([employer]) and validated at the [facility]. This test has not been FDA [...] WBC (Bld) 0.4 % Normal . [facility] Comment on above: Performed By: #### C BC, BMP #### [address] Automated basophil countOrde red By: Ralph Hernandez on 06-23-2022 Basophils (Bld) [#/Vol] 0.0 10*3/uL Normal 0.0-0.2 [facility] Comment on above: Result Comment: PERF ORMED BY: [place] [address] PATHOLOGIST NITRO WORKER HOLLY RAINES M.D. Performed By: #### C BC, BMP #### [address] Automated blood monocyte cou ntOrdered By: Ralph Hernandez on 06-23-2022 Monocytes (Bld) [#/Vol] 0.6 10*3/uL Normal 0.0-0.8 [facility] Comment on above: Performed By: #### C BC, BMP #### [address] Automated eosinophil %Ordere d By: Ralph Hernandez on 06-23-2022 Eosinophils/100 WBC (Bld) 0.6 % Normal . [facility] Comment on above: Performed By: #### C BC, BMP #### [address] Automated eosinophil countOr dered By: Ralph Hernandez on 06-23-2022 Eosinophils (Bld) [#/Vol] 0.0 10*3/uL Normal 0.0-0.45 [facility] Comment on above: Performed By: #### C BC, BMP #### [address] Automated monocyte %Ordered By: Ralph Hernandez on 06-23-2022 Monocytes/100 WBC (Bld) 8.4 % Normal . [facility] Comment on above: Performed By: #### C BC, BMP #### [address] Automated neutrophil %Ordere d By: Ralph Hernandez on 06-23-2022 Neutrophils/100 WBC (Bld) 63.6 % Normal . [facility] Comment on above: Performed By: #### C BC, BMP #### [address] Basic Metabolic Panelon 06-11 Estimated GFR ( Twyla > [address] [facility] Comment on above: Result Comment: GFR estimated reference range: According to KDOQI guidelines, <60 ml/min/1.73m2 is sufficient to diagnose a patient with chronic kidney disease. Performed By: #### C BC, BMP #### [address] Estimated GFR (Non- Am [address] [facility] Comment on above: Performed By: #### C BC, BMP #### [address] Complete Blood Count Auto Di ffon 06-23-2022 Mean Corpuscular HGB Conc 33.2 g/dL Normal 32.5-35.6 [facility] Comment on above: Performed By: #### C BC, BMP #### [address] Complete Blood Count Auto Di ffOrdered By: Ralph Hernandez on 06-23-2022 Nucleated RBC/100 WBC (Bld) [Ratio] 0.0 % Normal 0-0.5 [facility] Comment on above: Performed By: #### C EMMY, BMP #### [facility] [address] [place] [address] ECG 12 lead ECGon 06-23-2022 ECG 12 lead ECG [facility] [address] [place] [address] [place] [address] Electrocardiograph Report Signed Patient: Tylor Rahman MR#: [id number] : 1975 Acct:[id number] Age/Sex: 47 / M ADM Date: 06/23/22 Loc: Room: Type: [facility] Attending Dr: Ralph Hernandez MD Ordering Provider: [...] By: MUS Signed By Allison Brothers DO 06/[address] [facility] Erythrocyte distribution wid th [Ratio] by Automated countOrdered By: Ralph Hernandez on 06-23-2022 Erythrocyte distribution width (RBC) [Ratio] 12.6 % Normal 12.0-14.8 [facility] Comment on above: Performed By: #### C EMMY, BMP #### [facility] [address] [place] [address] [place] Erythrocytes [#/volume] in B lood by Automated countOrdered By: Ralph Hernandez on 06-23-2022 RBC (Bld) [#/Vol] 5.36 10*6/uL Normal 3.90-5.60 [facility] Comment on above: Performed By: #### C BC, BMP #### [address] Estimated glomerular filtrat ion rate (GFR) non- AmericanOrdered By: Ralph Hernandez on 06-23-2022 GFR/1.73 sq M.predicted among non-blacks MDRD (S/P/Bld) [Vol rate/Area] 56 mL/Min [facility] Hematocrit [Volume Fraction] of Blood by Automated countOrdered By: Ralph Hernandez on 06-23-2022 Hematocrit (Bld) [Volume fraction] 47.7 % Normal 38.8-50.0 [facility] Comment on above: Performed By: #### C BC, BMP #### [address] Hemoglobin [Mass/volume] in BloodOrdered By: Ralph Hernandez on 06-23-2022 Hemoglobin (Bld) [Mass/Vol] 15.9 g/dL Normal 13.0-17.0 [facility] Comment on above: Performed By: #### C BC, BMP #### [facility] [address] [place] [address] [place] Leukocytes [#/volume] in Blo od by Automated countOrdered By: Ralph Hernandez on 06-23-2022 WBC (Bld) [#/Vol] 7.3 10*3/uL Normal 4.5-11.0 [facility] Comment on above: Performed By: #### C BC, BMP #### [facility] [address] [place] [address] [place] Lymphocytes [#/volume] in Bl ood by Automated countOrdered By: Ralph Hernandez on 06-23-2022 Lymphocytes (Bld) [#/Vol] 2.0 10*3/uL Normal 1.00-4.8 [facility] Comment on above: Performed By: #### C BC, BMP #### [place] [address] [place] Lymphocytes/100 leukocytes i n Blood by Automated countOrdered By: Ralph Hernandez on 06-23-2022 Lymphocytes/100 WBC (Bld) 27.0 % Normal . [facility] Comment on above: Performed By: #### C BC, BMP #### [facility] [address] [place] [address] MCH [Entitic mass] by Automa ryan countOrdered By: Ralph Hernandez on 06-23-2022 MCH (RBC) [Entitic mass] 29.6 pg Normal 27.5-35.2 [facility] Comment on above: Performed By: #### C BC, BMP #### [facility] [address] [place] [address] MCHC Auto (RBC) [Mass/Vol]Or dered By: Ralph Hernandez on 06-23-2022 MCHC (RBC) [Mass/Vol] 33.2 g/dL 32.5-35.6 [facility] MCV [Entitic volume] by Auto mated countOrdered By: Ralph Hernandez on 06-23-2022 MCV (RBC) [Entitic vol] 89.1 fL Normal 83.5-101 [facility] Comment on above: Performed By: #### C BC, BMP #### [address] Neutrophils [#/volume] in Bl ood by Automated countOrdered By: Ralph Hernandez on 06-23-2022 Neutrophils (Bld) [#/Vol] 4.6 10*3/uL Normal 1.8-7.7 [facility] Comment on above: Performed By: #### C BC, BMP #### [facility] [address] [place] [address] No Panel InformationOrdered By: Ralph Hernandez on 06-23-2022 Estimated GFR () > 60 mL/Min [facility] Comment on above: GFR estimated refere nce range: According to KDOQI guidelines, <60 ml/min/1.73m2 is sufficient to diagnose a patient with chronic kidney disease. Pharmacy Creatinine Clearance (Chem N/A [facility] Platelet mean volume [Entiti c volume] in Blood by Automated countOrdered By: Ralph Hernandez on 06-23-2022 Platelet mean volume (Bld) [Entitic vol] 8.8 fL Normal 6.6-10.1 [facility] Comment on above: Performed By: #### C BC, BMP #### [address] Platelets [#/volume] in Bloo d by Automated countOrdered By: Ralph Hernandez on 06-23-2022 Platelets (Bld) [#/Vol] 229 10*3/uL Normal 150-450 [facility] Comment on above: Performed By: #### C BC, BMP #### [facility] [address] [place] [address] Serum or plasma anion gap de terminationOrdered By: Ralph Hernandez on 06-23-2022 Anion gap [Moles/Vol] 16.0 mmol/L High 6.0-15.0 [facility] Comment on above: Performed By: #### C BC, BMP #### [address] Serum or plasma calcium alissa urement (mass/volume)Ordered By: Ralph Hernandez on 06-23-2022 Calcium [Mass/Vol] 10.1 mg/dL Normal 8.2-10.2 [facility] Comment on above: Result Comment: PERF ORMED BY: [place] [address] PATHOLOGIST NITRO WORKER HOLLY RAINES M.D. Performed By: #### C BC, BMP #### [address] Serum or plasma chloride mojgan surement (moles/volume)Ordered By: Ralph Hernandez on 06-23-2022 Chloride [Moles/Vol] 102 mmol/L Normal 95-114 [facility] Comment on above: Performed By: #### C BC, BMP #### [address] Serum or plasma creatinine m easurement with calculation of estimated glomerular filtrOrdered By: Ralph Hernandez on 06-23-2022 Creatinine [Mass/Vol] 1.37 mg/dL High 0.64-1.27 [facility] Comment on above: Performed By: #### C BC, BMP #### [facility] [address] Serum or plasma glucose alissa urement (mass/volume)Ordered By: Ralph Hernandez on 06-23-2022 Glucose [Mass/Vol] 107 mg/dL High 70-100 [facility] Comment on above: ADA recommended refe rence rangeRandom Glucose Reference Range is dependent on time and content of last meal. Glucose of more than 200 mg/dL in a nonstressed, ambulatory subject supports the diagnosis of Diabetes Mellitus. Result Comment: [place] om Glucose Reference Range is dependent on time and content of last meal. Glucose of more than 200 mg/dL in a nonstressed, ambulatory subject supports the diagnosis of Diabetes Mellitus. ADA recommended reference range Performed By: #### C , BMP #### [address] Serum or plasma potassium me asurement (moles/volume)Ordered By: Ralph Hernandez on 06-23-2022 Potassium [Moles/Vol] 4.3 mmol/L Normal 3.5-5.1 [facility] Comment on above: Performed By: #### C EMMY, BMP #### [address] Serum or plasma sodium measu rement (moles/volume)Ordered By: Ralph Hernandez on 06-23-2022 Sodium [Moles/Vol] 139 mmol/L Normal 136-146 [facility] Comment on above: Performed By: #### C EMMY, BMP #### [address] Serum or plasma total carbon dioxide measurement (moles/volume)Ordered By: Ralph Hernandez on 06-23-2022 CO2 [Moles/Vol] 25.3 mmol/L Normal 22.0-30.0 [facility] Comment on above: Performed By: #### C EMMY, BMP #### [address] Serum or plasma urea nitroge n measurement (mass/volume)Ordered By: Ralph Hernandez on 06-23-2022 Urea nitrogen [Mass/Vol] 13 mg/dL Normal 9-23 [facility] Comment on above: Performed By: #### C BC, BMP #### [facility] [address] MRI LSPINE WO CONon 10-08-19 MRI [...] eccentric from left paracentral to right posterolateral. [place] is right posterolateral. Asymmetric deformity upon the [...] ALLISON ALSTON Date: 2021-10-08 10:51 Normal [facility] XR CSPINE OBL FLEX_EXTon XR CSPINE OBL [...] by: PHU STRONG Date: 2021-09-28 14:[address] [facility] XR LSPINE MIN 4 VIEWSon 08-11 XR [...] ISABELA GONZALEZ Date: 2021-08-23 11:19 Normal [facility] COVID Quick Testingon 2020 Result Positive [facility] Other COVID-19 Positive/Negativeon 09-28-2020 COVID-19 Positive/Negative Negative Negative [facility] Comment on above: Testing for SARS-CoV -2 by RT-PCRThis test was developed and its performance characteristics determined by [employer] ([employer]) and validated at the [facility]. This test has not been FDA [...] Otheron 09-28-2020 Coronavirus 2019 PCR Interp N/A [facility] [facility] basophil %on 09-16 Basophils/100 WBC (Bld) 0.5 % [facility] Automated basophil counton 0 09-16-2020 Basophils (Bld) [#/Vol] 0.0 10*3/uL 0.0-0.2 [facility] Automated blood lymphocyte c ount (number/volume)on 09-16-2020 Lymphocytes (Bld) [#/Vol] 2.3 10*3/uL 1.00-4.8 [facility] Automated blood lymphocyte c ount as percentage of total leukocyteson 09-16-2020 Lymphocytes/100 WBC (Bld) 26.8 % [facility] Automated blood monocyte cou nton 09-16-2020 Monocytes (Bld) [#/Vol] 0.8 10*3/uL 0.0-0.8 [facility] Automated blood platelet cou nt (count/volume)on 09-16-2020 Platelets (Bld) [#/Vol] 223 10*3/uL 150-450 [facility] Automated blood platelet mojgan n volume measurementon 09-16-2020 Platelet mean volume (Bld) [Entitic vol] 8.4 fL 6.6-10.1 [facility] Automated eosinophil %on Eosinophils/100 WBC (Bld) 1.2 % [facility] Automated eosinophil counton 09-16-2020 Eosinophils (Bld) [#/Vol] 0.1 10*3/uL 0.0-0.45 [facility] Automated erythrocyte distri bution width ratioon 09-16-2020 Erythrocyte distribution width (RBC) [Ratio] 13.6 % 12.0-14.8 [facility] Automated erythrocyte mean c orpuscular hemoglobin (mass per erythrocyte)on 09-16-2020 MCH (RBC) [Entitic mass] 29.9 pg 27.5-35.2 [facility] Automated erythrocyte mean c orpuscular hemoglobin concentration measurement (mass/volon 09-16-2020 MCHC (RBC) [Mass/Vol] 33.2 g/dL 32.5-35.6 [facility] Automated erythrocyte mean c orpuscular volumeon 09-16-2020 MCV (RBC) [Entitic vol] 90.1 fL 83.5-101 [facility] Automated monocyte %on 09-16 Monocytes/100 WBC (Bld) 9.6 % [facility] Automated neutrophil %on Neutrophils/100 WBC (Bld) 61.9 % [facility] Blood erythrocytes automated count (number/volume)on 09-16-2020 RBC (Bld) [#/Vol] 5.30 10*6/uL 3.90-5.60 [facility] Blood hemoglobin measurement (mass/volume)on 09-16-2020 Hemoglobin (Bld) [Mass/Vol] 15.9 g/dL 13.0-17.0 [facility] Blood leukocytes automated c ount (number/volume)on 09-16-2020 WBC (Bld) [#/Vol] 8.6 10*3/uL 4.5-11.0 [facility] Blood neutrophil count by au tomated method (number/volume)on 09-16-2020 Neutrophils (Bld) [#/Vol] 5.3 10*3/uL 1.8-7.7 [facility] Estimated glomerular filtrat ion rate (GFR) non- Americanon 09-16-2020 GFR/1.73 sq M predicted among non-blacks MDRD (S/P/Bld) [Vol rate/Area] mL/min/{1.73_m2} [facility] Hematocrit [Volume Fraction] of Blood by Automated counton 09-16-2020 Hematocrit (Bld) [Volume fraction] 47.8 % 38.8-50.0 [facility] Otheron 09-16-2020 GFR/1.73 sq M.predicted MDRD (S/P/Bld) [Vol rate/Area] mL/min/{1.73_m2} [facility] Comment on above: GFR estimated refere nce range: According to KDOQI guidelines, <60 ml/min/1.73m2 is sufficient to diagnose a patient with chronic kidney disease. Nucleated RBC/100 WBC (Bld) [Ratio] 0.2 % 0-0.5 [facility] Creatinine Clearance (Chem N/A [facility] Serum or plasma calcium alissa urement (mass/volume)on 09-16-2020 Calcium [Mass/Vol] 9.4 mg/dL 8.2-10.2 [facility] Serum or plasma chloride mojgan surement (moles/volume)on 09-16-2020 Chloride [Moles/Vol] 106 mmol/L 95-114 [facility] Serum or plasma creatinine m easurement with calculation of estimated glomerular filtron 09-16-2020 Creatinine [Mass/Vol] 1.03 mg/dL 0.64-1.27 [facility] Serum or plasma glucose alissa urement (mass/volume)on 09-16-2020 Glucose [Mass/Vol] 120 mg/dL 70-100 [facility] Comment on above: ADA recommended refe rence rangeRandom Glucose Reference Range is dependent on time and content of last meal. Glucose of more than 200 mg/dL in a nonstressed, ambulatory subject supports the diagnosis of Diabetes Mellitus. Serum or plasma potassium me asurement (moles/volume)on 09-16-2020 Potassium [Moles/Vol] 4.1 mmol/L 3.5-5.1 [facility] Serum or plasma sodium measu rement (moles/volume)on 09-16-2020 Sodium [Moles/Vol] 139 mmol/L 136-146 [facility] Serum or plasma total carbon dioxide measurement (moles/volume)on 09-16-2020 CO2 [Moles/Vol] 22.6 mmol/L 22.0-30.0 [facility] Serum or plasma urea nitroge n measurement (mass/volume)on 09-16-2020 Urea nitrogen [Mass/Vol] 11 mg/dL 9-23 [facility] Vital Signs Date Time Vital Sign Value Performing Clinician Facility 03-24-2025 18:15-0400 Body height 172.72 cm Lola Umana MD Work Phone: [facility] 03-24-2025 18:15-0400 Body mass index (BMI) [Ratio] 27.3 kg/m2 Lola Umana MD Work Phone: [facility] 03-24-2025 18:15-0400 Body weight 81.64 kg Lola Umana MD Work Phone: [facility] 03-24-2025 18:15-0400 Diastolic blood pressure 74 mm[Hg] Lola Umana MD Work Phone: [facility] 03-24-2025 18:15-0400 Heart rate 80 /min Lola Umana MD Work Phone: [facility] 03-24-2025 18:15-0400 SaO2% (BldA) [Mass fraction] 95 % Lola Umana MD Work Phone: [facility] 03-24-2025 18:15-0400 Systolic blood pressure 114 mm[Hg] Lola Umana MD Work Phone: [facility] 08-07-2024 14:35-0500 Body height 172.7 cm Bonifacio Dilip DO Work Phone: [facility] 08-07-2024 14:35-0500 Body mass index (BMI) [Ratio] 36.34 kg/m2 Bonifacio Dilip DO Work Phone: [facility] 08-07-2024 14:35-0500 Body weight 108.41 kg Bonifacio Dilip DO Work Phone: [facility] 08-07-2024 14:35-0500 Diastolic blood pressure 93 mm[Hg] Bonifacio Dilip DO Work Phone: [facility] 08-07-2024 14:35-0500 Heart rate 80 /min Bonifacio Dilip DO Work Phone: [facility] 08-07-2024 14:35-0500 Systolic blood pressure 137 mm[Hg] Bonifacio Dilip DO Work Phone: [facility] 05-29-2024 14:12-0400 Blood Pressure Location Alexis TRUONGL [facility] 05-29-2024 14:12-0400 Diastolic blood pressure 74 mm[Hg] Alexis TRUONGL [facility] 05-29-2024 14:12-0400 Heart rate 72 /min Alexis TRUONGL [facility] 05-29-2024 14:12-0400 Respiratory rate 16 /min Alexis TRUONGL [facility] 05-29-2024 14:12-0400 Systolic blood pressure 118 mm[Hg] Alexis TRUONGL [facility] 06-01-2023 18:15-0400 Body height 172.72 cm Sang Sullivan Other [facility] Other 06-01-2023 18:15-0400 Body mass index (BMI) [Ratio] 33.45 kg/m2 Sang Sullivan Other [facility] Other 06-01-2023 18:15-0400 Body temperature 97.8 [degF] Sang Sullivan Other [facility] Other 06-01-2023 18:15-0400 Body weight 99.79 kg Sang Sullivan Other [facility] Other 06-01-2023 18:15-0400 Respiratory rate 20 /min Sang Sullivan Other [facility] Other 06-01-2023 18:15-0400 SaO2% (BldA) [Mass fraction] 9 % Sang Sullivan Other [facility] Other 03-20-2023 13:45-0400 Body height 172.72 cm Marlo Chun Other [facility] Other 03-20-2023 13:45-0400 Body mass index (BMI) [Ratio] 34.97 kg/m2 Marlo Chun Other [facility] Other 03-20-2023 13:45-0400 Body weight 104.33 kg Marlo Chun Other [facility] Other 03-20-2023 13:45-0400 Diastolic blood pressure 86 mm[Hg] Marlo Chun Other [facility] Other 03-20-2023 13:45-0400 SaO2% (BldA) [Mass fraction] 97 % Marlo Chun Other [facility] Other 03-20-2023 13:45-0400 Systolic blood pressure 124 mm[Hg] Marlo Chun Other [facility] Other 02-27-2023 16:00-0400 Body height 172.72 cm Marlo Chun Other [facility] Other 02-27-2023 16:00-0400 Body mass index (BMI) [Ratio] 36 kg/m2 Marlo Chun Other [facility] Other 02-27-2023 16:00-0400 Body weight 107.41 kg Marlo Chun Other [facility] Other 02-27-2023 16:00-0400 Diastolic blood pressure 70 mm[Hg] Marlo Chun Other [facility] Other 02-27-2023 16:00-0400 SaO2% (BldA) [Mass fraction] 96 % Marlo Chun Other [facility] Other 02-27-2023 16:00-0400 Systolic blood pressure 110 mm[Hg] Marlo Chun Other [facility] Other 12-30-2022 11:00-0400 Body height 172.72 cm Ralph Hernandez Other [facility] Other 12-30-2022 11:00-0400 Body mass index (BMI) [Ratio] 35.88 kg/m2 Ralph Hernandez Other [facility] Other 12-30-2022 11:00-0400 Body weight 107.05 kg Ralph Hernandez Other [facility] Other 12-30-2022 11:00-0400 Diastolic blood pressure 84 mm[Hg] Ralph Hernandez Other [facility] Other 12-30-2022 11:00-0400 Systolic blood pressure 118 mm[Hg] Ralph Hernandez Other [facility] Other 09-16-2022 09:40-0500 Body height 172.72 cm Ralph Hernandez Other [facility] Other 09-16-2022 09:40-0500 Body mass index (BMI) [Ratio] 34.97 kg/m2 Ralph Hernandez Other [facility] Other 09-16-2022 09:40-0500 Body weight 104.33 kg Ralph Hernandez Other [facility] Other 08-02-2022 12:00-0500 Body height 172.72 cm Ralph Hernandez Other [facility] Other 08-02-2022 12:00-0500 Body mass index (BMI) [Ratio] 34.97 kg/m2 Ralph Hernandez Other [facility] Other 08-02-2022 12:00-0500 Body weight 104.33 kg Ralph Hernandez Other [facility] Other 07-06-2022 11:30-0400 Diastolic blood pressure 80 mm[Hg] MD Lola Umana Work Phone: [facility] 07-06-2022 11:30-0400 Heart rate 75 /min MD Lola Umana Work Phone: [facility] 07-06-2022 11:30-0400 Respiratory rate 16 /min MD Lola Umana Work Phone: [facility] 07-06-2022 11:30-0400 SaO2% (BldA) [Mass fraction] 92 % MD Lola Umana Work Phone: [facility] 07-06-2022 11:30-0400 Systolic blood pressure 123 mm[Hg] MD Lola Umana Work Phone: [facility] 07-06-2022 09:54-0400 Body temperature 98.1 [degF] MD Lola Umana Work Phone: [facility] 07-06-2022 09:54-0400 Inhaled oxygen flow rate 6 L/min MD Lola Umana Work Phone: [facility] 07-06-2022 08:01-0400 Body height 172.72 cm MD Lola Umana Work Phone: [facility] 07-06-2022 08:01-0400 Body mass index (BMI) [Ratio] 34.5 kg/m2 MD Lola Umana Work Phone: [facility] 07-06-2022 08:01-0400 Body weight 103 kg MD Lola Umana Work Phone: [facility] 06-27-2022 10:30-0400 Body height 172.72 cm Marlo Adiel Other [facility] Other 06-27-2022 10:30-0400 Body mass index (BMI) [Ratio] 35.06 kg/m2 Marlo Adiel Other [facility] Other 06-27-2022 10:30-0400 Body weight 104.6 kg Marlo Adiel Other [facility] Other 06-27-2022 10:30-0400 Diastolic blood pressure 80 mm[Hg] Marlo Chun Other [facility] Other 06-27-2022 10:30-0400 SaO2% (BldA) [Mass fraction] 97 % Marlo Adiel Other [facility] Other 06-27-2022 10:30-0400 Systolic blood pressure 140 mm[Hg] Marlo Chun Other [facility] Other 06-10-2022 09:20-0400 Body height 172.72 cm Ralph Hernandez Other [facility] Other 06-10-2022 09:20-0400 Body mass index (BMI) [Ratio] 34.36 kg/m2 Ralph Hernandez Other [facility] Other 06-10-2022 09:20-0400 Body weight 102.51 kg Ralph Hernandez Other [facility] Other 05-31-2022 15:30-0400 Body height 172.72 cm Sofya Espinoza Other [facility] Other 05-31-2022 15:30-0400 Body mass index (BMI) [Ratio] 34.42 kg/m2 Sofya Espinoza Other [facility] Other 05-31-2022 15:30-0400 Body weight 102.7 kg Sofya Espinoza Other [facility] Other 05-31-2022 15:30-0400 Diastolic blood pressure 64 mm[Hg] Sofya Espinoza Other [facility] Other 05-31-2022 15:30-0400 Respiratory rate 18 /min Sofya Espinoza Other [facility] Other 05-31-2022 15:30-0400 SaO2% (BldA) [Mass fraction] 98 % Sofya Espinoza Other [facility] Other 05-31-2022 15:30-0400 Systolic blood pressure 108 mm[Hg] Sofya Espinoza Other [facility] Other 03-03-2022 16:00-0400 Body height 172.72 cm Marlo Chun Other [facility] Other 03-03-2022 16:00-0400 Body mass index (BMI) [Ratio] 35.09 kg/m2 Marlo Chun Other [facility] Other 03-03-2022 16:00-0400 Body weight 104.69 kg Marlo Chun Other [facility] Other 03-03-2022 16:00-0400 Diastolic blood pressure 70 mm[Hg] Marlo Chun Other [facility] Other 03-03-2022 16:00-0400 SaO2% (BldA) [Mass fraction] 97 % Marlo Chun Other [facility] Other 03-03-2022 16:00-0400 Systolic blood pressure 122 mm[Hg] Marlo Chun Other [facility] Other 01-20-2022 15:30-0400 Body height 172.72 cm Marlo Chun Other [facility] Other 01-20-2022 15:30-0400 Body mass index (BMI) [Ratio] 34.63 kg/m2 Marlo Chun Other [facility] Other 01-20-2022 15:30-0400 Body weight 103.33 kg Marlo Chun Other [facility] Other 01-20-2022 15:30-0400 Diastolic blood pressure 80 mm[Hg] Marlo Chun Other [facility] Other 01-20-2022 15:30-0400 SaO2% (BldA) [Mass fraction] 96 % Marlo Chun Other [facility] Other 01-20-2022 15:30-0400 Systolic blood pressure 110 mm[Hg] Marlo Adiel Other [facility] Other 12-23-2021 15:30-0400 Body height 172.72 cm Marlo Chun Other [facility] Other 12-23-2021 15:30-0400 Body mass index (BMI) [Ratio] 34.69 kg/m2 Marlo Chun Other [facility] Other 12-23-2021 15:30-0400 Body weight 103.51 kg Marlo Chun Other [facility] Other 12-23-2021 15:30-0400 Diastolic blood pressure 84 mm[Hg] Marlo Chun Other [facility] Other 12-23-2021 15:30-0400 SaO2% (BldA) [Mass fraction] 97 % Marlo Chun Other [facility] Other 12-23-2021 15:30-0400 Systolic blood pressure 122 mm[Hg] Marlo Chun Other [facility] Other 11-22-2021 09:30-0400 Body height 172.72 cm Dylan Nieto Other [facility] Other 11-22-2021 09:30-0400 Body mass index (BMI) [Ratio] 34.21 kg/m2 Dylan Nieto Other [facility] Other 11-22-2021 09:30-0400 Body weight 102.06 kg Dylan Nieto Other [facility] Other 09-29-2021 10:00-0500 Body height 172.72 cm Dylan Nieto Other [facility] Other 09-29-2021 10:00-0500 Body mass index (BMI) [Ratio] 34.21 kg/m2 Dylan Nieto Other [facility] Other 09-29-2021 10:00-0500 Body weight 102.06 kg Dylan Nieto Other [facility] Other 07-27-2021 13:30-0500 Body height 172.72 cm Jeana Lauren Other [facility] Other 07-27-2021 13:30-0500 Body mass index (BMI) [Ratio] 34.21 kg/m2 Jeana Lauren Other [facility] Other 07-27-2021 13:30-0500 Body temperature 98 [degF] Jeana Lauren Other [facility] Other 07-27-2021 13:30-0500 Body weight 102.06 kg Jeana Lauren Other [facility] Other 07-27-2021 13:30-0500 SaO2% (BldA) [Mass fraction] 98 % Jeana Lauren Other [facility] Other Encounters Encounter Date Encounter Type Care Provider Facility Start: 03-24-2025 End: 03-24-2025 ambulatory Lola Umana MD Work Phone: [facility] Work Phone: Start: 03-24-2025 End: 03-24-2025 Patient encounter procedure Adrian Guillen APRN -[facility] Work Phone: Start: 08-07-2024 End: 08-07-2024 Office outpatient visit 25 minutes Bonifacio Morrison DO Work Phone: [facility] Comment on above: BERTHA (obstructive sle ep apnea) (Primary Dx); Shift work sleep disorder; Hypersomnia; Snoring Start: 08-07-2024 End: 08-07-2024 ambulatory BONIFACIO MORRISON Not Available Start: 08-07-2024 End: 08-07-2024 Bamboo flowsheet Bonifacio Morrison DO [facility] Start: 08-07-2024 End: 08-07-2024 Bamboo flowsheet Bonifacio Morrison DO Work Phone: [facility] Start: 07-10-2024 End: 07-10-2024 ambulatory Alexis Rocío ALCANTARA Facility:[id number] Start: 05-29-2024 End: 05-29-2024 ambulatory Alexis TRUONGL Facility:[facility] Start: 05-29-2024 End: 05-29-2024 Patient encounter procedure Alexis ALCANTARA [facility] [place] Start: 05-06-2024 ambulatory Alexis ALCANTARA Facility:[facility] Start: 06-01-2023 End: 06-01-2023 ambulatory Sang Sullivan Other [facility] Other Start: 06-01-2023 Office outpatient visit 15 minutes Sang Sullivan [facility] Start: 03-20-2023 End: 03-20-2023 ambulatory Marlo Chun Other [facility] Other Start: 03-20-2023 Office outpatient visit 25 minutes Marlo Chun [facility] Start: 03-07-2023 (PROC) PROCEDURE Marlo Santizo [facility] Start: 03-07-2023 End: 03-07-2023 ambulatory Marlo Chun Other [facility] Other Start: 02-28-2023 End: 02-28-2023 ambulatory Marlo Chun Other [facility] Other Start: 02-28-2023 Telephone encounter Marlo Adiel [facility] Start: 02-27-2023 End: 02-27-2023 ambulatory Marlo Chun Other [facility] Other Start: 02-27-2023 Office outpatient visit 25 minutes Marlo Adiel [facility] Start: 12-30-2022 End: 12-30-2022 ambulatory Ralph Hernandez Other [facility] Other Start: 12-30-2022 Office outpatient visit 15 minutes Ralph Hernandez [facility] Start: 09-16-2022 End: 09-16-2022 ambulatory Ralph Hernandez Other [facility] Other Start: 09-16-2022 Postop follow up vis it related to original px Ralph Hernandez [facility] Start: 08-02-2022 End: 08-02-2022 ambulatory Ralph Hernandez Other [facility] Other Start: 08-02-2022 Postop follow up vis it related to original px Ralph Hernandez [facility] Start: 07-06-2022 End: 07-06-2022 Admission to same day surgery center MD Lola Umana Work Phone: [facility] [place] Start: 07-06-2022 End: 07-06-2022 ambulatory Lola Umana Facility:[facility] Start: 07-06-2022 End: 07-06-2022 ambulatory MD Lola Umana Work Phone: [facility] Work Phone: Start: 07-04-2022 End: 07-04-2022 ambulatory Ralphboaz Hernandez Facility:[facility] Start: 07-04-2022 End: 07-04-2022 ambulatory MD Lola Umana Work Phone: [facility] Work Phone: Start: 07-04-2022 End: 07-04-2022 Patient encounter procedure MD Lola Umana Work Phone: [facility] Start: 06-28-2022 End: 06-28-2022 ambulatory Ralph Hernandez Other [facility] Other Start: 06-28-2022 Telephone encounter Ralph Hernandez [facility] Start: 06-27-2022 End: 06-27-2022 ambulatory Marlo Chun Other [facility] Other Start: 06-27-2022 Office outpatient visit 25 minutes Marlojing Chun [facility] Start: 06-23-2022 End: 06-23-2022 ambulatory Ralph Hernandez Facility:[facility] Start: 06-23-2022 End: 06-23-2022 ambulatory MD Lola Umana Work Phone: [facility] Work Phone: Start: 06-23-2022 End: 06-23-2022 Patient encounter procedure MD Lola Umana Work Phone: [facility] Start: 06-10-2022 End: 06-10-2022 ambulatory Ralph Hernandez Other [facility] Other Start: 06-10-2022 Office outpatient visit 40 minutes Ralph Hernandez [facility] Start: 05-31-2022 End: 05-31-2022 ambulatory Sofya Espinoza Other [facility] Other Start: 05-31-2022 Office outpatient visit 15 minutes Sofya Espinoza [facility] Start: 04-25-2022 End: 04-26-[address] LOLA UMANA Facility: Start: 03-03-2022 End: 03-03-2022 ambulatory Marlo Chun Other [facility] Other Start: 03-03-2022 Office outpatient visit 15 minutes Marlojing Chun [facility] Start: 02-24-2022 (Procedure) Short Marlo Chun [facility] Start: 02-24-2022 End: 02-24-2022 ambulatory Marlo Chun Other [facility] Other Start: 02-10-2022 End: 02-10-2022 ambulatory Marlo Chun Other [facility] Other Start: 02-10-2022 Telephone encounter Marlo Chun [facility] Start: 01-20-2022 End: 01-20-2022 ambulatory Marlo Chun Other [facility] Other Start: 01-20-2022 Office outpatient visit 25 minutes Marlo Adiel [facility] Start: 01-06-2022 (Procedure) Short Marlo Chun [facility] Start: 01-06-2022 End: 01-06-2022 ambulatory Marlo Chun Other [facility] Other Start: 12-23-2021 End: 12-23-2021 ambulatory Marlo Chun Other [facility] Other Start: 12-23-2021 Office outpatient visit 15 minutes Marlojing Chun [facility] Start: 12-16-2021 (Procedure) Short Marlo Chun [facility] Start: 12-16-2021 End: 12-16-2021 ambulatory Marlo Chun Other [facility] Other Start: 12-06-2021 End: 12-06-2021 ambulatory Marlo Chun Other [facility] Other Start: 12-06-2021 Telephone encounter Marlo Chun [facility] Start: 11-22-2021 End: 11-22-2021 ambulatory Dylan Nieto Other [place] [facility] Other Start: 11-22-2021 Office outpatient visit 15 minutes Dylan Nieto [facility] Start: 10-08-2021 End: 10-09-[address] DOCTOR ACUÑA Facility:[facility] Start: 10-06-2021 End: 10-06-2021 ambulatory Dylan Nieto Other [facility] Other Start: 10-06-2021 Telephone encounter Dylan Short [facility] Start: 09-29-2021 End: 09-29-2021 ambulatory Dylan Nieto Other [facility] Other Start: 09-29-2021 Office outpatient visit 15 minutes Dylan Nieto [facility] [place] Start: 09-28-2021 End: 09-29-[address] DOCTOR ACUÑA Facility:[facility] Start: 09-12-2021 End: 10-09-[address] LOLA UMANA Facility:[facility] Start: 09-01-2021 End: 09-10-[address] LOLA UMANA Facility:[facility] Start: 08-23-2021 End: 08-24-[address] LOLA UMANA Facility:[facility] Start: 07-27-2021 End: 07-27-2021 ambulatory Jeana Lauren Other [facility] Other Start: 07-27-2021 Office outpatient visit 15 minutes Jeana Lauren [facility] Start: 09-28-2020 End: 09-28-2020 Patient encounter procedure Lola Umana -Pre-Surgical Testing Start: 09-16-2020 End: 09-16-2020 Patient encounter procedure Lola Umana -Pre-Surgical Testing Start: 09-02-2020 End: 09-02-2020 Patient encounter procedure Lola Umana -XRay [facility] Procedures Date Procedure Procedure Detail Performing Clinician Start: 07-06-2022 Excision of lumbar intervertebral disc MD Lola Umana Work Phone: Start: 09-02-2020 Radiography of cervi sergio spine Lola Umana Excision of cervical intervertebral disc Alexis MARICRUZ Excision of lumbar intervertebral disc Alexis TRUONGGalina Plan of Treatment Date Care Activity Detail Author Start: 08-07-2024 End: 08-07-2024 Patient encounter procedure 08/07/2024 2:45 PM EST Office Visit [facility] [address] [place] [address] Bonifacio Morrison, DO [address] [place] [address] Ar[address] [facility] [address] Comment on above: Arrived Start: 07-06-2022 [facility] Start: 07-06-2022 [facility] Start: 07-06-2022 X-ray of lumbar spin e, single view XR lumbar spine 1V [facility] Start: 07-06-2022 XR Lumbar spine Sing le view [facility] Patient referral [facility] Work Phone: Immunizations Immunization Date Immunization Notes Care Provider Fa cility 12-27-2020 COVID-19 Efren Iyer (Pfizer) MD Lola Umana Work Phone: [facility] Comment on above: Result Comment: 2023: [id number] 12-05-2020 COVID-19 Efren Iyer (Pfizer) MD Lola Umana Work Phone: [facility] Comment on above: Result Comment: 2023: [id number] Payers Date Payer Category Payer Blue Cross Blue [employer] BC[facility] [id number] 2022 Self-pay [id number] 1975 Unknown [id number]. 2.593 1977 Unknown [id number] [id number]. 2.593 1977 Unknown [id number] [id number]. 2.593 1977 Unknown [id number] [id number]. 2.593 1977 Unknown [id number] [id number]. 2.593 1977 Unknown [id number] [id number]. 2.593 1977 Unknown [id number] [id number]. 2.727 1977 Unknown [id number] [id number]. 2.727 1977 Unknown [id number] [id number]. 2.1259 1959 Blue Cross Blue Shield GTFAN [id number] 1959 Unknown [id number] Unknown Self Pay [id number] Unknown [id number] [id number]. 2.531 Unknown [id number] [id number]. 2.531 Unknown [id number] [id number]. 2.531 Social History Date Type Detail Facility Start: 09-16-2020 End: 05-29-2024 Tobacco smoking status NHIS Never smoked tobacco (finding) [facility] Start: 1975 Sex Assigned At Male F [facility] Start: 08-07-2024 Sex Assigned At F [facility] Start: 06-23-2022 End: 07-06-2022 Tobacco smoking status NHIS Smoker (finding) [facility] Start: 08-07-2024 Tobacco use and exposure User of smokeless tobacco [facility] History of tobacco use Chews Tobacco [facility] Start: 08-07-2024 Alcoholic beverage intake Current drinker of alcohol (finding) [facility] Start: 08-07-2024 History of Social function [facility] Start: 08-07-2024 Alcohol Comment weekends [facility] Start: 1975 Sex assigned at Not on file [facility] Tobacco smoking status Smokeless tobacco user within last 30 days [facility] Start: 07-06-2022 Tobacco smoking stat [facility] Smokes tobacco daily (finding) [facility] Sex Male (finding) [facility] Medical Equipment Procedure Code Equipment Code Equipment Origin al Text Equipment Identifier Dates Cervical total d isc replacement prosthesis, sterile [id number] [facility] Start: 09-29-2020 Goals Date Patient Goal Desired Activity /State Functional Status Date Assessment Result Facility 05-29-2024 Functional Status N/A [facility] Clinical Notes 07-27-2021 to 08-07-2024 Bonifacio Morrison, - 08/07/2024 2:45 PM EST Note Date & Type Note Facility 08-07-2024 History of Present illness Narrative Images from the original note were not included. Chief Complaint Patient presents with Sleep Apnea Subjective Tylor is here today for his yearly follow up from the sleep clinic. He was last seen on 07/12/2023. He denies any issues with his PAP machine. He is wearing his machine nightly. He does feel rested in the mornings. He does need new supplies. He just switched to nights. He does feel good when he is getting good sleep . He has to wear the mask to sleep . NO new medical issues since the last visit Past Medical History: Diagnosis Date DDD (degenerative disc disease), lumbar Past Surgical History: Procedure Laterality Date BACK SURGERY Family History Problem Relation Name Age of Onset Diabetes Father Social History Tobacco Use Smoking status: Never Smokeless tobacco: Current Types: Chew Substance Use Topics Alcohol use: Yes Comment: weekends Allergies: Patient has no known allergies. General: No fever or chills HEENT: No nasal congestion or runny nose Pulmonary: No shortness of breath or cough Cardiovascular: No chest pain or palpitations GI: No nausea or vomiting : No dysuria or hematuria Musculoskeletal: No new aches or pains or muscle weakness Infectious: no recurrent fevers or infections Dermatologic: No rashes or skin lesions Neurologic: No new headaches or dizziness Vitals: 08/07/24 1435 BP: (!) 137/93 Pulse: 80 Body mass index is 36.34 kg/m . weight: 239 lb Neurologic exam: General: Normal body habitus, cooperative, pleasant Mental status: Awake, alert to person, place and time. Recent and remote memory are intact. Attention and concentration are normal. Fund of knowledge is appropriate for level of education. HEENT: NC/AT Cranial nerves: CN II: Visual maher full to confrontation. No loss of vision CN III, IV, : pupils equal round and reactive to light. Extraocular movements intact. No ptosis present. CN V: Facial sensation is normal. CN VII: Full and symmetric facial movement. CN VIII: Hearing is normal CN IX and X: Palate elevates symmetrically. CN XI: Shoulder shrug is normal bilaterally. CN XII: Tongue is midline without atrophy or fasciculation. Speech: Clear and fluent no aphasia or dysarthria Pronator drift: Negative bilateral upper extremity Coordination: Intact, no signs of dysmetria Good finger to nose and rapid alternating movements Sensory: Sensation is intact to light, temperature and vibratory touch throughout four extremities. Motor: LUE 5/5 RUE 5/5 LLE 5/5 RLE 5/5 Tone: Physiologic, no tremor, bradykinesia or rigidity DTR: Bilateral Biceps 2/4 Bilateral BR 2/4 Bilateral Patellar 2/4 No spasticity Gait: Normal to casual gait Romberg's Negative Review and summary of old records: Assessment/Plan Diagnoses and all orders for this visit: BERTHA (obstructive sleep apnea) Shift work sleep disorder Hypersomnia Snoring 49-year-old male with a severe obstructive sleep apnea leading to daytime hypersomnolence and snoring. Patient remains compliant with his machine and is doing well with it. He did very well this last time as he was working 1st shift. He recently was switched back to 3rd shift. He switches shifts every 10 weeks which certainly those off his sleep schedule. He was counseled he needs to keep the same sleep time 7 days out of the week and he could try to varied a little bit Patient is compliance shows he is compliant wearing at 93 percent of the time greater than 4 hours with an average nightly usage of 7 hours and 6 minutes and residual AHI of 0.8. Patient's [place] Sleepiness scale is a 10. Plan Patient is compliant with his machine as stated above [place] Sleepiness scale is 10 Try to keep the same sleep schedule 7 days a week despite his shift The patient was counseled on proper sleep hygiene and adequate hours of sleep. The patient was counseled on the risks of stroke, NE, and sudden with BERTHA, along with the need for compliance with the CPAP/BiPAP treatment. Plan The patient was counseled on the risks of stroke, NE, and sudden with BERTHA, along with the need for compliance with the CPAP/BiPAP treatment. The diagnosis was all discussed with the patient. All questions were answered and they agreed with the treatment plan. Patient will call if there are any new issues or questions. Pt has been fully educated on their diagnosis, treatment options, follow up plan, and return instructions Return to clinic:1 year documented in this encounter [facility] 05-29-2024 Note General Surgery Offi ce/Clinic Note [...] mRNA [id number] vax 12/05/2020 Recorded 2024-05-22: [id number] [facility] Comment on above: Result Comment: Elec tronically Signed By: MARICRUZ ANDERSEN, Alexis Lafleur\Date and Time Signed: 05/29/24 14:37 EDT 06-01-2023 [...] Pt understood and agreed to treatment plan. [facility] Other 07-10-2023 Evaluation note* Encounter Date Diagnosis [...] procedure. Mar, Sacroiliitis (ICD-10 - M46.1) Stable. [facility] Other 06-19-2023 Evaluation note* Encounter Date Diagnosis [...] this time to further evaluate his pain [facility] Other 04-21-2023 Evaluation note* Encounter Date Diagnosis [...] physical therapy and then ordering an MRI. [facility] Other 01-06-2023 Evaluation note* Encounter Date Diagnosis [...] Sep, Lumbosacral disc herniation (ICD-10 - M51.27) [facility] Other 11-22-2022 Evaluation note* Encounter Date Diagnosis Assessment Notes Treatment Notes Treatment Clinical Notes Jul, Lumbosacral disc herniation (ICD-10 - M51.27) 1 month postop the patient is doing well. He will go back to work on a limited duty basis on August 18..We will see him again in 2 months for follow-up. He is aware of his restriction [facility] Other 10-26-2022 History general Narrative - Reported* Type Description Date Surgical History vasectomy Surgical History Artificial disc C6-7 Surgical History L5-S1 discectomy with Dr Hernandez 07/06/2022 Hospitalization History See Above [facility] Other 10-17-2022 Evaluation note* Encounter Date Diagnosis [...] - G89.29) Continue taking medications as prescribed. [facility] Other 09-30-2022 Evaluation note* Encounter Date Diagnosis [...] would like to proceed with surgical intervention. [facility] Other 09-20-2022 Evaluation note* Encounter Date Diagnosis [...] to 300mg TID. Continue Celebrex as prescribed [facility] Other 06-23-2022 Evaluation note* Encounter Date Diagnosis [...] call the office if his symptoms return [facility] Other 05-12-2022 Evaluation note* Encounter Date Diagnosis [...] call the office if his symptoms return [facility] Other 04-14-2022 Evaluation note* Encounter Date Diagnosis [...] - M51.36) Continue with current treatment plan [facility] Other 2022 Evaluation note* Encounter Date Diagnosis [...] Nov, Degenerative lumbar disc (ICD-10 - M51.36) [facility] Other 01-19-2022 Evaluation note* Encounter Date Diagnosis [...] a year with repeat set of x-rays. [facility] Other 11-16-2021 Evaluation note* Encounter Date Diagnosis Assessment Notes Treatment Notes Treatment Clinical Notes Jul, Contact with and (suspected) exposure to other viral communicable diseases (ICD-10 - Z20.828) Jul, COVID-19 (ICD-10 - U07.1) Today you tested positive for the COVID virus. This mean you need to follow all CDC quarantine guidelines found at [email or web address] v. It is important to rest, increase [...] Patient care instructions given in writting by [facility] Care At Home document. [facility] Other Evaluation + Plan note No data available for this section [facility] General Surgery [place] Evaluation noteNo InformationNort [employer] [facility] [employer] Other evaluation noteNo assessment information available [facility] Work Phone: Evaluation note* Diagnosis BERTHA (obstructive sleep apnea)- Primary Obstructive sleep apnea (adult) (pediatric) Shift work sleep disorder Circadian rhythm sleep disorder, shift work type Hypersomnia Hypersomnia, unspecified Snoring Other dyspnea and respiratory abnormality documented in this encounter [facility] Narrative - Reported* Type Description Date Surgical History vasectomy Surgical History Artificial disc C6-7 Hospitalization History See Above [facility] Other Hospital Discharge instructions Additional Instructions DISCHARGE [...] appointment to see your physician in two weeks.[facility] Work Phone: Hospital Discharge instructions No data available for this section [facility] Progress note No data available for this section [facility] Reason for referral (narrative)No reason for referral [facility] Work Phone: Advance Directives Advance Directive Response Recorded Date/ Time Advance Directives No June 12, 2020 12:00pm Advance Directive Response Recorded Date/ Time Advance Directives No June 12, 2020 1:00pm Chief Complaint and Reason for Visit Chief Complaint M50.10 Radiculopathy Chief Complaint M50.10 Radiculopathy Radiculopathy Chief Complaint radiculopathy Chief Complaint radiculopathy radiculopathy Chief Complaint radiculopathy radiculopathy radiculopathy Chief Complaint Admit Date poss poison adrianna March 24, 2025 6:15 pm Assessments No Assessments Information AvailableNo Assessments Information Available Reason for Referral Reason *Waiting for appt Evaluate and Treat CRUZ Right SI Diagnosis 1 Lumbosacral disc her niation (M51.27) Referral Organization [facility] urosurgery Referring Provider First Name Dylan Referring Provider Last Name Gerson Referring Provider Specialty Neurosurger y Referred Organization [facility] Pain Managemen t [facility] Referred Provider Vikas Negrete Referred Address [address] [facility] [place],[address] Referred Provider Specialty Pain Medicin e Referral Priority Routine General Notes Fore, Gaby M 11/22/ 022 10:58:17 AM >Received today and send P2P Summary Purpose Family History Relationship Condition Age at Onset Recorded Date/T sriram father Diabetes mellitus Unknown History of coronary artery bypass surgery Unknown No Family History Records Found Additional Source Comments REASON FOR VISIT (unrecogniz ed section and content) Reason Comments Sleep Apnea (unrecognized sect ion and content) No Status Records FoundNo Status Records FoundNo Status Records FoundNo Status Records Found INFORMATION SOURCE (unrecogn ized section and content) DATE CREATED AUTHOR 05/03/2022 [facility] DATE CREATED AUTHOR AUTHOR'S ORGANIZ ATION 10/15/2022 [facility] DATE CREATED AUTHOR AUTHOR'S ORGANIZ ATION 07/13/2024 [facility] DATE CREATED AUTHOR AUTHOR'S ORGANIZ ATION 08/10/2024 [facility] [employer] Care Teams (unrecognized sec tion and content) Team Status: Active Member Role Status Dates Lola Umana MD Primary Care Provider Active Team Status: Inactive Member Role Status Dates Lola Umana MD Primary Care Provider Active S tart: March 24, 2025 End: March 24, 2025 Adrian Guillen APRN Attending Provider Active Start: March 24, 2025 End: March 24, 2025 Team Status: Inactive Member Role Status Dates Lola Umana MD Primary Care Provider Active Ralph Hernandez MD Attending Provider Active Team Status: Active Member Role Status Dates Lola Umana MD Primary Care Provider Active Admissions Consultant Relationship Specialty Start Date End Date Peter Fagan MD [address] [phone] PCP - General Family Medicine 07/23/24 Bonifacio Morrison DO [address] [place] [address] Referring Physician Neurology 07/23/24 Admissions Consultant Relationship Specialty Start Date End Date Peter Fagan MD [address] [place] [address] PCP - General Family Medicine 07/23/24 Bonifacio Morrison DO [address] [place] [address] Referring Physician Neurology 07/23/24 Team Status: Inactive Member Role Status Dates Lola Umana MD Primary Care Provider Active S tart: March 24, 2025 End: March 24, 2025 Adrian Guillen APRN Attending Provider Active Start: March 24, 2025 End: March 24, 2025 Goals (unrecognized section and content) Goals may [...] BE BASED ON THE PRIMARY CLINICAL RECORDS. [facility] [employer] provides no warranty or guarantee of the accuracy or completeness of information in this document.
[2025-03-27 09:24] LABS: Hematocrit 40.6 % (42.0-54.0); Hemoglobin 13.7 g/dL (14.0-18.0); Immature Granulocytes Abs Auto 0.02 10^3/uL (0.00-0.03); Immature Granulocytes Pct Auto 0.2 % (0.0-0.5); Lymphocytes Absolute Auto 1.5 10^3/uL (1.2-3.8); Mean Corpuscular HGB Conc 33.7 g/dL (29.9-35.2); Mean Corpuscular Hemoglobin 29.5 pg (25.9-34.0); Mean Corpuscular Volume 87.5 fL (80.0-94.0); Platelet Count 268 10^3/uL (150-450); Red Blood Count 4.64 10^6/uL (4.70-6.10); White Blood Count 8.8 10^3/uL (4.0-11.0)
[2025-03-27 10:43] LABS: Alanine Aminotransferase 36 U/L (16-63); Albumin Globulin Ratio 1.1; Albumin Level 3.6 g/dL (3.4-5.0); Alkaline Phosphatase 65 U/L (46-116); Anion Gap 11.9; Aspartate Amino Transferase 15 U/L (15-37); Blood Urea Nitrogen 18.0 mg/dL (7.0-18.0); Calcium 9.1 mg/dL (8.5-10.1); Carbon Dioxide 28.8 mmol/L (21.0-32.0); Chloride 103 mmol/L (98-107); Cholesterol 160 mg/dL (<=200); Estimated GFR (African America >60 (>=60 mL/min/1.73m^2); Estimated GFR (Non-African Ame >60 (>=60 mL/min/1.73m^2); Free T3 2.25 pg/mL (2.18-3.98); Globulin 3.3 g/dL; Glucose 113 mg/dL (74-106); HDL Cholesterol 40 mg/dL (40-60); Potassium 4.7 mmol/L (3.5-5.1); Sodium 139 mmol/L (136-145); Thyroid Stimulating Hormone 0.555 uIU/mL (0.358-3.740); Total Protein 6.9 g/dL (6.4-8.2); Triglycerides 76 mg/dL (<=150); VLDL CHOLESTEROL 15.2 mg/dL
== END 2025-03-27 08:59 | disposition home or self-care (01) ==
LOC: LAB 08:59
PROVIDERS: PCP Family Medicine; Visit Provider Family Medicine
DX: Z00.00 Encounter for general adult medical examination without abnormal findings (principal); Z12.5 Encounter for screening for malignant neoplasm of prostate
CPT/HCPCS: 36415; 80053; 80061; 83036; 84436; 84443; 84481; 85025; G0103